=== PATIENT | male | born 1950 | race Caucasian/White ===

== ENCOUNTER 2017-06-19 13:41 | Inpatient (IN) | payer OTHER ==
[2017-06-19 14:24] LABS: BASOPHILS # (AUTO) 0.1 X10^3/uL (0.0-0.1); BASOPHILS % (AUTO) 0.9 % (0.2-1.0); EOSINOPHILS % (AUTO) 0.6 % (0.9-2.9); HEMATOCRIT 31.9 % (42.0-54.0); HEMOGLOBIN 11.3 g/dL (13.5-18.0); LYMPHOCYTES # (AUTO) 0.8 X10^3/uL (1.3-2.9); LYMPHOCYTES % (AUTO) 11.9 % (21.0-51.0); MEAN CORPUSCULAR HEMOGLOBIN 29.3 pg (27.0-34.0); MEAN CORPUSCULAR HGB CONC 35.3 g/dL (33.0-35.0); MEAN CORPUSCULAR VOLUME 83.1 fL (80.0-100.0); MEAN PLATELET VOLUME 7.7 fL (7.4-11.0); MONOCYTES # (AUTO) 0.4 x10^3/uL (0.3-0.8); MONOCYTES % (AUTO) 5.1 % (0.0-13.0); NEUTROPHILS # (AUTO) 5.6 x10^3/uL (2.2-4.8); NEUTROPHILS % (AUTO) 81.5 % (42.0-75.0); PLATELET COUNT 392 X10^3/uL (150.0-450.0); RED BLOOD COUNT 3.84 X10^6/uL (4.7-6.0); RED CELL DISTRIBUTION WIDTH 14.5 % (11.6-16.5); WHITE BLOOD COUNT 6.9 X10^3/uL (3.6-10.0)
--- NOTE | 2017-06-19 14:32 | RAD ---
Examination: AP chest History: Dizzy and chest pain Findings: Normal heart size, sternal wires, clear lungs and pleural spaces. Impression: No acute chest disease identified. Findings of previous sternotomy. Reported By:
[2017-06-19 14:33] LABS: ALANINE AMINOTRANSFERASE 31 Units/L (12-78); ALBUMIN 3.9 g/dL (3.4-5.0); ALKALINE PHOSPHATASE 154 Units/L (46-116); ASPARTATE AMINO TRANSFERASE 25 Units/L (15-37); BLOOD UREA NITROGEN 42 mg/dL (7-18); CALCIUM 9.4 mg/dL (8.5-10.1); CARBON DIOXIDE 21.9 mmol/L (21-32); CHLORIDE 96 mmol/L (98-107); COR NA(FOR HYPERGLY) 130 mmol/L (136-145); CREATININE 2.28 mg/dL (0.70-1.30); SODIUM 128 mmol/L (136-145); TOTAL PROTEIN 8.3 g/dL (6.4-8.2); eGFR BLACK RACES 37 (>60); eGFR NON BLACK RACES 31 (>60)
[2017-06-19] MEDS ORDERED: NS 1000 ML 1,000 ML ONE (15:16)
[2017-06-19] MEDS ORDERED: D50W ABBOJECT SYR ONE (15:17)
[2017-06-19] MEDS ORDERED: CALCIUM GLUCONATE 10% IV ONE ×2 (15:17→15:19)
[2017-06-19] MEDS ORDERED: SODIUM BICARBONATE 8.4% INJ ADULT ONE (15:18)
[2017-06-19] MEDS ORDERED: HumuLIN R ONE (15:18)
[2017-06-19] MEDS ORDERED: HumuLIN R IV STA (15:19)
[2017-06-19] MEDS ORDERED: D50W ABBOJECT SYR IV ONE (15:19)
[2017-06-19] MEDS ORDERED: LASIX IVP ONE (15:19)
[2017-06-19] MEDS ORDERED: SODIUM BICARBONATE 8.4% INJ ADULT IVP ONE (15:22)
[2017-06-19] MEDS ORDERED: ZOFRAN INJ 4 MG VIAL IVP ONE (15:42)
--- NOTE | 2017-06-19 15:56 | DR.GENAD ---
HPI - PCP Primary Care Physician: MARKO VICE PRESIDENT [employer] - Complaint/Symptoms Chief Complaint Doctors Comments: Patient has been treated for cellulitis of the left foot for the past week. He now complaine of dizziness, weakness and not feeling well. Chief Complaint:: PT C/O FOR THE PAST FEW DAY'S BEING DIZZY, CHEST PAINS CHILLS , AND WEAK.. PT HAS HX OF INFECTION TO HIS LEFT FOOT PAIN ".. - Source History Provided: Patient - Mode of Arrival Mode of Arrival: Wheelchair - Timing Onset of Chief Complaint: 06/16/17 PMH - PMH Past Medical History: Yes Past Medical History: Dialysis, GERD, Hypertension Past Medical History Comment: CVA , [place]. Past Surgical History: Yes Surgical History: Angioplasty/Stents, CABG/Valve Surgery - Family History History of Family Medical Conditions: No - Social History Does patient currently use any type of tobacco product: No Have you used tobacco products in the last 12 months: No Type of Tobacco Use: None Does any household member use tobacco: No Alcohol Use: None Do you use any recreational Drugs:: No Lives With: Family Lives Where: Home - infectious screening In the last 2 months have you had wt loss of >10#?: NO Have you had fever, night sweats or hemotysis?: No Have you traveled outside the country in the last 6 months?: No Isolation: Standard PE - Vital Signs Vitals: Temperature 98.0 F Pulse Rate [Left Brachial] 72 Pulse Rate 76 Respiratory Rate 18 Blood Pressure [Left Arm] 116/67 Blood Pressure 106/57 O2 Sat by Pulse Oximetry 100 Course - Consultation Called: 17:15 (Dr Wagner agreed to admit for further evaluation and treatment) ROR - Labs Reviewed Result Diagrams: 06/19/17 14:13 06/19/17 14:13 Laboratory: WBC 6.9 X10^3/uL (3.6-10.0) 06/19/17 14:13 RBC 3.84 X10^6/uL (4.7-6.0) L 06/19/17 14:13 Hgb 11.3 g/dL (13.5-18.0) L 06/19/17 14:13 Hct 31.9 % (42.0-54.0) L 06/19/17 14:13 MCV 83.1 fL (80.0-100.0) 06/19/17 14:13 MCH 29.3 pg (27.0-34.0) 06/19/17 14:13 MCHC 35.3 g/dL (33.0-35.0) H 06/19/17 14:13 RDW 14.5 % (11.6-16.5) 06/19/17 14:13 Plt Count 392 X10^3/uL (150.0-450.0) 06/19/17 14:13 MPV 7.7 fL (7.4-11.0) 06/19/17 14:13 Neut % 81.5 % (42.0-75.0) H 06/19/17 14:13 Lymph % 11.9 % (21.0-51.0) L 06/19/17 14:13 [place] % 5.1 % (0.0-13.0) 06/19/17 14:13 Eos % 0.6 % (0.9-2.9) L 06/19/17 14:13 Baso % 0.9 % (0.2-1.0) 06/19/17 14:13 Neut # 5.6 x10^3/uL (2.2-4.8) H 06/19/17 14:13 Lymph # 0.8 X10^3/uL (1.3-2.9) L 06/19/17 14:13 [place] # 0.4 x10^3/uL (0.3-0.8) 06/19/17 14:13 Eos # 0.0 x10^3/uL (0.0-0.2) 06/19/17 14:13 Baso # 0.1 X10^3/uL (0.0-0.1) 06/19/17 14:13 Absolute Nucleated RBC 0.0 /100WBC 06/19/17 14:13 INR Target Range - 06/19/17 14:13 INR 1.10 (0.8-1.3) 06/19/17 14:13 PTT 32.5 SECONDS (22.9-36.5) 06/19/17 14:13 PTT Comment - 06/19/17 14:13 Sodium 128 mmol/L (136-145) L 06/19/17 14:13 Corrected Sodium 130 mmol/L (136-145) L 06/19/17 14:13 Potassium 6.4 mmol/L (3.5-5.1) H* 06/19/17 14:13 Chloride 96 mmol/L (98-107) L 06/19/17 14:13 Carbon Dioxide 21.9 mmol/L (21-32) 06/19/17 14:13 BUN 42 mg/dL (7-18) H 06/19/17 14:13 Creatinine 2.28 mg/dL (0.70-1.30) H 06/19/17 14:13 Est GFR (MDRD) Af Amer 37 (>60) L 06/19/17 14:13 Est GFR (MDRD) Non-Af 31 (>60) L 06/19/17 14:13 Glucose 180 mg/dL (65-99) H 06/19/17 14:13 Calcium 9.4 mg/dL (8.5-10.1) 06/19/17 14:13 Corrected Calcium TNP 06/19/17 14:13 Total Bilirubin 0.50 mg/dL (0.2-1.0) 06/19/17 14:13 AST 25 Units/L (15-37) 06/19/17 14:13 ALT 31 Units/L (12-78) 06/19/17 14:13 Alkaline Phosphatase 154 Units/L (46-116) H 06/19/17 14:13 Total Protein 8.3 g/dL (6.4-8.2) H 06/19/17 14:13 Albumin 3.9 g/dL (3.4-5.0) 06/19/17 14:13 Globulin 4.4 g/dL (2.5-4.5) 06/19/17 14:13 Albumin/Globulin Ratio 0.9 Ratio (1.1-2.1) L 06/19/17 14:13 - XRAY XRAY Interpreted by: Radiologist (Chest; no acute chest disease identified. Findings of prevous sternotomy) - Diagnosis Discharge Problem: Prerenal azotemia, Hyperkalemia, Hyponatremia Chest pain Qualifiers: Chest pain type: unspecified Qualified Code(s): R07.9 - Chest pain, unspecified - Discharge Plan Condition: Stable - Follow ups/Referrals Follow ups/Referrals: STEPHIE SOLER [Primary Care Provider] - 3 days - Instructions
[2017-06-19] MEDS ORDERED: REQUIP PO ONE (17:00)
[2017-06-19] MEDS ORDERED: NS 1000 ML 1,000 ML IV ONE (17:09)
[2017-06-19 18:00] LABS: BILIRUBIN,URINE NEGATIVE (NEGATIVE); BLOOD/HEMOGLOBIN,URINE 1+ (NEGATIVE); GLUCOSE, URINE 2+ (NEGATIVE); KETONES,URINE NEGATIVE (NEGATIVE); LEUKOCYTE ESTERASE ,URINE NEGATIVE (NEGATIVE); NITRITES,URINE NEGATIVE (NEGATIVE); PROTEIN,URINE 2+ (NEGATIVE); UROBILINOGEN,URINE NORMAL (NORMAL)
[2017-06-19 18:06] LABS: AMORPHOUS SEDIMENT,UR 1+ /HPF (NEGATIVE); APPEARANCE,URINE CLEAR (CLEAR); BACTERIA,URINE NEGATIVE /HPF (NEGATIVE); COLOR,URINE YELLOW (YELLOW); RBC,URINE 0-2 /HPF (NEGATIVE); SQUAMOUS EPITHELIAL CELL,UR NEGATIVE /HPF (NEGATIVE)
--- NOTE | 2017-06-19 18:48 | CT ---
CT abdomen and pelvis without contrast Indication: Dizzy, chest pain, chills, weakness Technique: Helical CT images of the abdomen and pelvis were obtained without IV contrast. Reformatted images in the coronal and sagittal planes were also generated for review. Comparison: None Findings: Lung bases are clear. The heart is mildly enlarged. Prior median sternotomy and degenerativ e changes are noted throughout the spine. No aggressive osseous lesions are identified. The gallbladder surgically absent. Within the limits of a noncontrast exam, the liver, spleen, pancre as and adrenals are unremarkable. Both kidneys and visualized ureters are normal without radiopaque s tones or hydroureteronephrosis. There is moderate stool throughout the colon and rectum, suggestive f or constipation. The appendix is not identified and may be absent. No bowel inflammation or obstructi on is seen. There is mild calcification of the abdominal aorta without aneurysm. The urinary bladder is normal. T he centrally calcified prostate is normal in size. No free air, free fluid or lymphadenopathy is iden tified. Impression: No acute abnormality to explain patient's symptoms. Moderate stool burden throughout the colon, suggestive for constipation. Additional incidental findin gs, as above. Reported By:
[2017-06-19] MEDS ORDERED: NS 1000 ML 1,000 ML IV SCH (19:00)
[2017-06-19] MEDS: NS 1000 ML 1,000 ML IV SCH (20:03)
[2017-06-19 20:11] LABS: CKMB % 3.4 % (<4); CREATINE KINASE 76 Units/L (39-308); CREATINE KINASE MB 2.6 ng/mL (0-4.0); TROPONIN I < 0.02 ng/mL (0-1.5)
[2017-06-19] MEDS: BACTRIM DS TAB PO SCH (22:03)
[2017-06-19] MEDS: COLACE CAP 100 MG PO SCH (22:03)
[2017-06-19] MEDS: HumuLIN R SUBCUT PRN (22:03)
[2017-06-19] MEDS: MILK OF MAGNESIA PO SCH (22:03)
[2017-06-20 02:20] VITALS: BMI 27.3
[2017-06-20 02:47] LABS: BASOPHILS % (AUTO) 0.5 % (0.2-1.0); EOSINOPHILS % (AUTO) 0.8 % (0.9-2.9); HEMATOCRIT 29.8 % (42.0-54.0); HEMOGLOBIN 10.5 g/dL (13.5-18.0); LYMPHOCYTES # (AUTO) 1.1 X10^3/uL (1.3-2.9); LYMPHOCYTES % (AUTO) 25.4 % (21.0-51.0); MEAN CORPUSCULAR HEMOGLOBIN 29.3 pg (27.0-34.0); MEAN CORPUSCULAR HGB CONC 35.4 g/dL (33.0-35.0); MEAN CORPUSCULAR VOLUME 82.9 fL (80.0-100.0); MEAN PLATELET VOLUME 7.7 fL (7.4-11.0); MONOCYTES # (AUTO) 0.4 x10^3/uL (0.3-0.8); MONOCYTES % (AUTO) 9.2 % (0.0-13.0); NEUTROPHILS # (AUTO) 2.7 x10^3/uL (2.2-4.8); NEUTROPHILS % (AUTO) 64.1 % (42.0-75.0); PLATELET COUNT 331 X10^3/uL (150.0-450.0); RED CELL DISTRIBUTION WIDTH 14.4 % (11.6-16.5); WHITE BLOOD COUNT 4.2 X10^3/uL (3.6-10.0)
[2017-06-20 02:56] LABS: BILIRUBIN,URINE NEGATIVE (NEGATIVE); BLOOD/HEMOGLOBIN,URINE NEGATIVE (NEGATIVE); GLUCOSE, URINE NEGATIVE (NEGATIVE); KETONES,URINE NEGATIVE (NEGATIVE); LEUKOCYTE ESTERASE ,URINE NEGATIVE (NEGATIVE); NITRITES,URINE NEGATIVE (NEGATIVE); PH,URINE 6.5 (5.0 - 8.0); PROTEIN,URINE NEGATIVE (NEGATIVE); UROBILINOGEN,URINE NORMAL (NORMAL)
[2017-06-20 03:04] LABS: CREATINE KINASE 71 Units/L (39-308); CREATINE KINASE MB 2.1 ng/mL (0-4.0); TROPONIN I < 0.02 ng/mL (0-1.5)
[2017-06-20 03:06] LABS: APPEARANCE,URINE CLEAR (CLEAR); BACTERIA,URINE NEGATIVE /HPF (NEGATIVE); COLOR,URINE PALE YELLOW (YELLOW); RBC,URINE NONE SEEN /HPF (NEGATIVE); SQUAMOUS EPITHELIAL CELL,UR RARE /HPF (NEGATIVE)
[2017-06-20 03:27] LABS: ALANINE AMINOTRANSFERASE 29 Units/L (12-78); ALBUMIN 3.4 g/dL (3.4-5.0); ALKALINE PHOSPHATASE 130 Units/L (46-116); ASPARTATE AMINO TRANSFERASE 20 Units/L (15-37); BLOOD UREA NITROGEN 40 mg/dL (7-18); CARBON DIOXIDE 25.1 mmol/L (21-32); CHLORIDE 100 mmol/L (98-107); COR NA(FOR HYPERGLY) 136 mmol/L (136-145); SODIUM 135 mmol/L (136-145); TOTAL PROTEIN 7.2 g/dL (6.4-8.2); eGFR BLACK RACES 43 (>60); eGFR NON BLACK RACES 36 (>60)
[2017-06-20] MEDS: AMARYL TAB 4 MG PO SCH ×2 (06:19→17:51)
--- NOTE | 2017-06-20 07:15 | RAD ---
Examination: Portable AP chest History: Chest pain and weakness. Comparison reference 06/19/2017 Findings: Continued upper normal heart size with essentially clear lungs and pleural spaces. Impression: No significant interval change; no acute abnormality demonstrated. Reported By:
[2017-06-20] MEDS: ASPIRIN 81 MG CHEWTAB PO SCH (08:47)
[2017-06-20] MEDS: BACTRIM DS TAB PO SCH (08:47)
[2017-06-20] MEDS: ZESTRIL TAB 5 MG PO SCH (08:47)
[2017-06-20] MEDS: HYDROCHLOROTHIAZIDE 25 MG TAB PO SCH (08:47)
[2017-06-20] MEDS: SYNTHROID 112 mcg TAB PO SCH (08:48)
[2017-06-20] MEDS: MILK OF MAGNESIA PO SCH ×2 (08:48→20:43)
[2017-06-20] MEDS: COREG TAB 25 MG PO SCH (08:48)
[2017-06-20] MEDS: BENADRYL CAP/TAB 25 MG PO PRN (09:07)
[2017-06-20] MEDS ORDERED: PHARMACY CONSULT - DOSE _____ XX SCH (10:00)
[2017-06-20] MEDS ORDERED: FORTAZ or TAZICEF INJ 1 GM in NS 50 ML IV 50 ML IV SCH (10:00)
[2017-06-20] MEDS: SNACK - Diabetic Appropriate PO SCH ×2 (10:46→20:00)
[2017-06-20] MEDS ORDERED: BACTROBAN OINT TOP SCH (11:00)
[2017-06-20] MEDS: VANCOMYCIN HCL 1 GM VIAL 1 GM in NS 250 ML IV 250 ML IV SCH (11:09)
--- NOTE | 2017-06-20 12:00 | US ---
HISTORY: Acute renal failure Study: Renal ultrasound: Multiplanar ultrasonographic examination of the kidneys and region of the bladder was performed using color and grayscale imaging. Comparison: CT scan from 06/19/2017 Findings: On the images submitted to me the kidneys are of normal size, echogenicity and echotexture. I see no evidence of renal mass or hydronephrosis. Right kidney: 10.4 cm in length by 4.1 by 4.8 cm. Left kidney: 9.7 cm in length by 3.9 by 3.9 cm. The urinary bladder is nonvisualized secondary to nondistention. Of note is a mildly enlarged spleen measuring 14 cm in length. IMPRESSION: 1. Negative renal ultrasound. 2. Mild splenomegaly. Reported By:
[2017-06-20] MEDS ORDERED: REQUIP PO ONE (12:03)
[2017-06-20] MEDS: HumuLIN R SUBCUT PRN ×2 (12:53→20:42)
[2017-06-20] MEDS: BACTROBAN OINT TOP SCH ×2 (14:13→22:30)
[2017-06-20] MEDS: NS 1000 ML 1,000 ML IV SCH ×2 (17:51→21:20)
[2017-06-20] MEDS: FORTAZ OR TAZICEF IV SCH (20:41)
[2017-06-20] MEDS: D5W IV SCH (20:41)
[2017-06-20] MEDS: COLACE CAP 100 MG PO SCH (20:43)
[2017-06-21] MEDS: NS 1000 ML 1,000 ML IV SCH ×3 (03:55→23:35)
[2017-06-21 04:50] LABS: BASOPHILS % (AUTO) 0.8 % (0.2-1.0); EOSINOPHILS # (AUTO) 0.1 x10^3/uL (0.0-0.2); EOSINOPHILS % (AUTO) 2.1 % (0.9-2.9); HEMOGLOBIN 10.4 g/dL (13.5-18.0); LYMPHOCYTES # (AUTO) 1.1 X10^3/uL (1.3-2.9); LYMPHOCYTES % (AUTO) 27.6 % (21.0-51.0); MEAN CORPUSCULAR HEMOGLOBIN 29.2 pg (27.0-34.0); MEAN CORPUSCULAR HGB CONC 34.8 g/dL (33.0-35.0); MEAN CORPUSCULAR VOLUME 83.9 fL (80.0-100.0); MEAN PLATELET VOLUME 7.9 fL (7.4-11.0); MONOCYTES # (AUTO) 0.3 x10^3/uL (0.3-0.8); MONOCYTES % (AUTO) 8.7 % (0.0-13.0); NEUTROPHILS # (AUTO) 2.4 x10^3/uL (2.2-4.8); NEUTROPHILS % (AUTO) 60.8 % (42.0-75.0); PLATELET COUNT 302 X10^3/uL (150.0-450.0); RED BLOOD COUNT 3.57 X10^6/uL (4.7-6.0); RED CELL DISTRIBUTION WIDTH 14.7 % (11.6-16.5); WHITE BLOOD COUNT 3.9 X10^3/uL (3.6-10.0)
[2017-06-21 05:14] LABS: ALANINE AMINOTRANSFERASE 27 Units/L (12-78); ALBUMIN 3.3 g/dL (3.4-5.0); ALKALINE PHOSPHATASE 117 Units/L (46-116); ASPARTATE AMINO TRANSFERASE 26 Units/L (15-37); BLOOD UREA NITROGEN 36 mg/dL (7-18); CALCIUM 8.4 mg/dL (8.5-10.1); CARBON DIOXIDE 21.6 mmol/L (21-32); CHLORIDE 102 mmol/L (98-107); CREATININE 1.89 mg/dL (0.70-1.30); SODIUM 135 mmol/L (136-145); TOTAL PROTEIN 7.1 g/dL (6.4-8.2); eGFR BLACK RACES 46 (>60); eGFR NON BLACK RACES 38 (>60)
[2017-06-21] MEDS: BACTROBAN OINT TOP SCH ×3 (05:35→21:35)
[2017-06-21 07:48] LABS: CREATININE,URINE 52.25 mg/dL (40-278); MICROALBUMIN,URINE 33.5 mg/L
[2017-06-21] MEDS: AMARYL TAB 4 MG PO SCH ×2 (09:17→17:01)
[2017-06-21] MEDS: COREG TAB 25 MG PO SCH (09:17)
[2017-06-21] MEDS: ASPIRIN 81 MG CHEWTAB PO SCH (09:17)
[2017-06-21] MEDS: HYDROCHLOROTHIAZIDE 25 MG TAB PO SCH (09:17)
[2017-06-21] MEDS: D5W IV SCH ×2 (09:17→21:33)
[2017-06-21] MEDS: FORTAZ OR TAZICEF IV SCH ×2 (09:17→21:33)
[2017-06-21] MEDS: SYNTHROID 112 mcg TAB PO SCH (09:18)
[2017-06-21] MEDS: MILK OF MAGNESIA PO SCH ×2 (09:18→21:33)
[2017-06-21] MEDS: VANCOMYCIN HCL 1 GM VIAL 1 GM in NS 250 ML IV 250 ML IV SCH (09:18)
[2017-06-21] MEDS: ZESTRIL TAB 5 MG PO SCH (09:19)
--- NOTE | 2017-06-21 10:28 | DR.H&P ---
H&P - History & Physical for Day of: H&P Date: 06/19/17 - Chief Complaint Chief Complaint: weakness, dizziness, chest pain - Allergies Allergies/Adverse Reactions: Allergies Allergy/AdvReac Type Severity Reaction Status Date / Time No Known Drug Allergies Allergy Verified 06/19/17 19:16 [NKDA] - Past Medical History Past Medical History: Anemia, Coronary Artery Disease, CVA, Depression, Diabetes , Dialysis, Dyslipidemia, Migraines, GERD, Hypertension, AR, Sleep Apnea - Past Surgical History Surgical History: Angioplasty/Stents, CABG/Valve Surgery, Cholecystectomy Additional Surgical History: cataract surgery - Family History Family Medical History: Diabetes Mellitus, Cancer, AR, Coronary Artery Disease, Hypertension - Social History Does patient currently use any type of tobacco product: No Have you used tobacco products in the last 12 months: No Type of Tobacco Use: None Does any household member use tobacco: No Alcohol Use: None - Medications Home Medications: Aspirin [ASPIRIN 81 MG CHEWTAB *] 1 tab PO DAILY 06/19/17 [History Confirmed 06/24] Carvedilol [COREG TAB 25 MG *] 1 tab PO DAILY 06/19/17 [History Confirmed ] Diphenhydramine HCl [BENADRYL 25 MG TAB/CAP *] 1 tab PO DAILY PRN 06/19/17 [ History Confirmed 06/19/17] Glimepiride [Glimepiride 2 mg] 4 mg PO BID 06/19/17 [History Confirmed 06/19/17] Hydrochlorothiazide [HYDROCHLOROTHIAZIDE 25 MG TAB *] 1 tab PO DAILY 06/19/17 [ History Confirmed 06/19/17] Levothyroxine Sodium [SYNTHROID 112 mcg *] 1 tab PO DAILY 06/19/17 [History Confirmed 06/19/17] Lisinopril 1 tab PO DAILY 06/19/17 [History Confirmed 06/19/17] Sulfamethoxazole-Trimethoprim [BACTRIM DS TAB 800/160 MG *] 1 tab PO BID [History Confirmed 06/19/17] - Review of Systems Constitutional: Sweats, Weakness Eyes: No Symptoms Reported. denies: See HPI, Pain, Vision Change, Conjunctivae Inflammation, Eyelid Inflammation, Redness, Other ENT: No Symptoms Reported. denies: See HPI, Ear Pain, Ear Discharge, Nose Pain , Nose Discharge, Nose Congestion, Mouth Pain, Mouth Swelling, Throat Pain, Throat Swelling, Other Respiratory: No Symptoms Reported. denies: See HPI, Cough, Dry, Shortness of Breath, Hemoptysis, SOB with Excertion, Pleuritic Pain, Sputum, Wheezing, Other Cardiovascular: Light Headedness. denies: No Symptoms Reported, Chest Pain, See HPI, Palpitations, Orthopnea, Paroxysmal Noc. Dyspnea, Edema, Other Gastrointestinal: Nausea, Vomiting, Abdominal Pain, Constipation Genitourinary: No Symptoms Reported. denies: See HPI, Dysuria, Frequency, Incontinence, Hematuria, Retention, Other Musculoskeletal: Back Pain, Neck Pain Skin: Wound (left great toe ) Neurological: Weakness - Physical Exam Vital Signs: Temperature 97.7 F Pulse Rate [Left Brachial] 64 Pulse Rate 76 Respiratory Rate 20 Blood Pressure [Left Arm] 135/65 Blood Pressure 106/57 O2 Sat by Pulse Oximetry 95 Oriented: Normal Eyes: Normal. negative: Blurred Vision, Diplopia, Discharge, Pain, Redness, Photophobia, Other Ear: Normal. negative: Right, Left, Swelling, Ecchymosis, Hemotypanum, Abrasion , Laceration Nose: Normal. negative: Injected, Discharge, Blood, Other Throat: Normal. negative: Tonsillar Hypertrophy, Red, Exudate, Dry, Other Respiratory: Clear Throughout Cardiovascular: Normal : Normal Auscultation: Bowel Sounds: Normal. negative: Bruit, Absent, Increased, Decreased, High Pitched, Other Palpation: Normal. negative: Spleen Enlarged, Liver Enlarged, Mass Pulsatile, Other Tenderness: Diffuse, Mild Skin: Wound (left great toe decubitus ) Musculoskeletal: Normal Psychiatric: Normal Mood Description: Calm Affect: Normal Speech Pattern: Clear - Assessment/Plan (1) Chest pain Qualifiers: Chest pain type: unspecified Qualified Code(s): R07.9 - Chest pain, unspecified Status: Acute Plan: serial cardiac enzymes and ekg, telemetry, supplemental oxygen, continue to monitor (2) Hyperkalemia Status: Acute Plan: potassium protocol replacement (3) Hyponatremia Status: Acute Plan: normal saline at 100ml/hr, continue to monitor (4) Prerenal azotemia Status: Acute Plan: renal US in am, normal saline at 100ml/hr, continue to monitor (5) Diabetic ulcer of left great toe Status: Acute Plan: wound care, wound culture, continue abx, continue bactrim ds bid, continue to monitor
[2017-06-21] MEDS: HumuLIN R SUBCUT PRN ×2 (13:08→17:03)
[2017-06-21] MEDS: BENADRYL CAP/TAB 25 MG PO PRN (19:38)
[2017-06-21] MEDS: COLACE CAP 100 MG PO SCH (21:34)
[2017-06-21] MEDS: SNACK - Diabetic Appropriate PO SCH ×2 (21:34→21:38)
[2017-06-22 05:17] LABS: BASOPHILS % (AUTO) 0.9 % (0.2-1.0); EOSINOPHILS # (AUTO) 0.1 x10^3/uL (0.0-0.2); EOSINOPHILS % (AUTO) 2.4 % (0.9-2.9); HEMATOCRIT 28.6 % (42.0-54.0); HEMOGLOBIN 10.1 g/dL (13.5-18.0); LYMPHOCYTES # (AUTO) 1.1 X10^3/uL (1.3-2.9); LYMPHOCYTES % (AUTO) 29.8 % (21.0-51.0); MEAN CORPUSCULAR HEMOGLOBIN 29.4 pg (27.0-34.0); MEAN CORPUSCULAR HGB CONC 35.3 g/dL (33.0-35.0); MEAN CORPUSCULAR VOLUME 83.4 fL (80.0-100.0); MEAN PLATELET VOLUME 7.9 fL (7.4-11.0); MONOCYTES # (AUTO) 0.3 x10^3/uL (0.3-0.8); MONOCYTES % (AUTO) 7.4 % (0.0-13.0); NEUTROPHILS # (AUTO) 2.2 x10^3/uL (2.2-4.8); NEUTROPHILS % (AUTO) 59.5 % (42.0-75.0); PLATELET COUNT 298 X10^3/uL (150.0-450.0); RED BLOOD COUNT 3.43 X10^6/uL (4.7-6.0); RED CELL DISTRIBUTION WIDTH 14.6 % (11.6-16.5); WHITE BLOOD COUNT 3.6 X10^3/uL (3.6-10.0)
[2017-06-22 05:29] LABS: ALANINE AMINOTRANSFERASE 30 Units/L (12-78); ALBUMIN 3.2 g/dL (3.4-5.0); ALKALINE PHOSPHATASE 110 Units/L (46-116); ASPARTATE AMINO TRANSFERASE 24 Units/L (15-37); BLOOD UREA NITROGEN 29 mg/dL (7-18); CALCIUM 8.3 mg/dL (8.5-10.1); CARBON DIOXIDE 22.5 mmol/L (21-32); CHLORIDE 104 mmol/L (98-107); COR CA(FOR HYPOALB) 8.9 mg/dL (8.5-10.1); CREATININE 1.55 mg/dL (0.70-1.30); SODIUM 134 mmol/L (136-145); TOTAL PROTEIN 6.9 g/dL (6.4-8.2); eGFR BLACK RACES 58 (>60); eGFR NON BLACK RACES 48 (>60)
[2017-06-22] MEDS: BACTROBAN OINT TOP SCH (06:13)
[2017-06-22] MEDS: AMARYL TAB 4 MG PO SCH (06:31)
[2017-06-22] MEDS: D5W IV SCH (09:46)
[2017-06-22] MEDS: VANCOMYCIN HCL 1 GM VIAL 1 GM in NS 250 ML IV 250 ML IV SCH (09:46)
[2017-06-22] MEDS: FORTAZ OR TAZICEF IV SCH (09:46)
[2017-06-22] MEDS: ZESTRIL TAB 5 MG PO SCH (09:49)
[2017-06-22] MEDS: ASPIRIN 81 MG CHEWTAB PO SCH (09:49)
[2017-06-22] MEDS: HYDROCHLOROTHIAZIDE 25 MG TAB PO SCH (09:49)
[2017-06-22] MEDS: COREG TAB 25 MG PO SCH (09:49)
[2017-06-22] MEDS: SYNTHROID 112 mcg TAB PO SCH (09:49)
[2017-06-22] MEDS: MILK OF MAGNESIA PO SCH (09:49)
[2017-06-22] MEDS: BENADRYL CAP/TAB 25 MG PO PRN (09:56)
[2017-06-22 14:27] VITALS: BP 127/87
== END 2017-06-22 13:30 | disposition home or self-care (01) | DRG 313 ==
LOC: ER 13:55 → MED/SURG 18:02
PROVIDERS: ADMIT Internal Medicine; ATTEND Internal Medicine
DX: R07.89 Other chest pain (principal); E86.0 Dehydration; E87.5 Hyperkalemia; B95.62 Methicillin resistant Staphylococcus aureus infection as the cause of diseases classified elsewhere; E11.621 Type 2 diabetes mellitus with foot ulcer; L97.528 Non-pressure chronic ulcer of other part of left foot with other specified severity; R94.31 Abnormal electrocardiogram [ECG] [EKG]; R42 Dizziness and giddiness; R53.1 Weakness; R79.89 Other specified abnormal findings of blood chemistry; E87.1 Hypo-osmolality and hyponatremia; I10 Essential (primary) hypertension; K21.9 Gastro-esophageal reflux disease without esophagitis
CPT/HCPCS: 36415; 71010; 74176; 76770; 80053; 81001; 82043; 82550; 82553; 84132; 84484; 85025; 85610; 85730; 87070; 87075; 87077; 87186; 87205; 93005; 93010; 94760; 96365; 96367; 96374; 96375; 99284; A4216; A4222; J0610; J0713; J1815; J1940; J2405; J3370; J3490

== ENCOUNTER 2017-10-01 13:53 | Inpatient (IN) | payer OTHER ==
[2017-10-01] MEDS ORDERED: TUSSIONEX PENNKINETIC SUSP PO PRN (16:43)
[2017-10-01] MEDS ORDERED: LEVAQUIN PREMIX IV 750 MG 750 MG/150 ML BAG IV SCH (16:43)
[2017-10-01] MEDS ORDERED: NS 1000 ML 0 ML ONE (17:23)
[2017-10-01] MEDS ORDERED: SALINE 3% 15 ML NEB TX ONE (17:24)
[2017-10-01] MEDS ORDERED: SALINE 3% 15 ML NEB TX NEB ONE ×2 (17:28→18:30)
[2017-10-01 17:32] LABS: BASOPHILS % (AUTO) 0.5 % (0.2-1.0); EOSINOPHILS # (AUTO) 0.1 x10^3/uL (0.0-0.2); EOSINOPHILS % (AUTO) 0.8 % (0.9-2.9); HEMATOCRIT 33.7 % (42.0-54.0); HEMOGLOBIN 12.1 g/dL (13.5-18.0); LYMPHOCYTES # (AUTO) 0.7 X10^3/uL (1.3-2.9); LYMPHOCYTES % (AUTO) 9.5 % (21.0-51.0); MEAN CORPUSCULAR HEMOGLOBIN 31.2 pg (27.0-34.0); MEAN CORPUSCULAR HGB CONC 36.1 g/dL (33.0-35.0); MEAN CORPUSCULAR VOLUME 86.6 fL (80.0-100.0); MEAN PLATELET VOLUME 8.9 fL (7.4-11.0); MONOCYTES # (AUTO) 0.7 x10^3/uL (0.3-0.8); MONOCYTES % (AUTO) 8.8 % (0.0-13.0); NEUTROPHILS # (AUTO) 6.2 x10^3/uL (2.2-4.8); NEUTROPHILS % (AUTO) 80.4 % (42.0-75.0); PLATELET COUNT 197 X10^3/uL (150.0-450.0); RED BLOOD COUNT 3.89 X10^6/uL (4.7-6.0); RED CELL DISTRIBUTION WIDTH 14.6 % (11.6-16.5); WHITE BLOOD COUNT 7.8 X10^3/uL (3.6-10.0)
[2017-10-01] MEDS ORDERED: NS 1/2 1000 ML IV 1,000 ML IV ONE (17:34)
[2017-10-01] MEDS: NS 1/2 1000 ML IV 1,000 ML IV SCH (17:34)
[2017-10-01] MEDS: TAMIFLU PO SCH ×2 (17:39→20:36)
[2017-10-01] MEDS: ROBITUSSIN DM PO SCH ×2 (17:39→20:36)
[2017-10-01 17:44] LABS: ALANINE AMINOTRANSFERASE 30 Units/L (12-78); ALBUMIN 3.8 g/dL (3.4-5.0); ALKALINE PHOSPHATASE 115 Units/L (46-116); ASPARTATE AMINO TRANSFERASE 20 Units/L (15-37); BLOOD UREA NITROGEN 40 mg/dL (7-18); CALCIUM 8.7 mg/dL (8.5-10.1); CHLORIDE 95 mmol/L (98-107); COR NA(FOR HYPERGLY) 137 mmol/L (136-145); SODIUM 131 mmol/L (136-145); eGFR BLACK RACES 43 (>60); eGFR NON BLACK RACES 36 (>60)
[2017-10-01] MEDS: HumuLIN R SUBCUT PRN ×2 (19:44→22:45)
[2017-10-01 20:15] VITALS: BMI 27.6
[2017-10-01] MEDS ORDERED: NS 100 ML IV + SPIKE MINIBAG* 100 ML IV ONE (20:27)
[2017-10-01] MEDS ORDERED: DUONEB 0.5 MG/3 MG NEB SCH (21:00)
[2017-10-01] MEDS: DUONEB 0.5 MG/3 MG NEB SCH (22:08)
[2017-10-01] MEDS: SNACK - Diabetic Appropriate PO SCH (22:15)
[2017-10-01] MEDS: ZOSYN VIAL 4.5 GM IV SCH (22:16)
[2017-10-01] MEDS: MAALOX or MYLANTA PO PRN (23:13)
[2017-10-02] MEDS: DUONEB 0.5 MG/3 MG NEB SCH ×6 (00:48→21:00)
[2017-10-02] MEDS ORDERED: NS 1/2 1000 ML IV 1,000 ML IV ONE ×2 (04:52→20:48)
[2017-10-02] MEDS ORDERED: NS 100 ML IV + SPIKE MINIBAG* 100 ML IV ONE (05:17)
[2017-10-02] MEDS: ZOSYN VIAL 4.5 GM IV SCH ×2 (05:23→05:24)
[2017-10-02] MEDS: NS 1/2 1000 ML IV 1,000 ML IV SCH ×2 (06:11→21:01)
[2017-10-02] MEDS: HumuLIN R SUBCUT PRN ×3 (06:17→15:55)
[2017-10-02 06:21] LABS: BASOPHILS % (AUTO) 0.5 % (0.2-1.0); EOSINOPHILS % (AUTO) 0.4 % (0.9-2.9); HEMATOCRIT 29.2 % (42.0-54.0); HEMOGLOBIN 10.6 g/dL (13.5-18.0); LYMPHOCYTES % (AUTO) 15.2 % (21.0-51.0); MEAN CORPUSCULAR HEMOGLOBIN 31.4 pg (27.0-34.0); MEAN CORPUSCULAR HGB CONC 36.2 g/dL (33.0-35.0); MEAN CORPUSCULAR VOLUME 86.7 fL (80.0-100.0); MEAN PLATELET VOLUME 8.5 fL (7.4-11.0); MONOCYTES # (AUTO) 0.8 x10^3/uL (0.3-0.8); NEUTROPHILS # (AUTO) 4.6 x10^3/uL (2.2-4.8); NEUTROPHILS % (AUTO) 71.9 % (42.0-75.0); PLATELET COUNT 165 X10^3/uL (150.0-450.0); RED BLOOD COUNT 3.37 X10^6/uL (4.7-6.0); RED CELL DISTRIBUTION WIDTH 13.9 % (11.6-16.5); WHITE BLOOD COUNT 6.5 X10^3/uL (3.6-10.0)
--- NOTE | 2017-10-02 06:28 | RAD ---
HISTORY: Pneumonia, cough, shortness of breath Study: Two-view chest Comparison: 06/19/2017. Findings: There again changes of CABG with median sternotomy sutures and metallic markers indicating coronary a rtery bypass grafts. A left-sided coronary stent is also seen. Trachea is midline. There is mild card iomegaly with aortic uncoiling. Lungs and pleural spaces are clear. No infiltrate, CHF, pleural fluid or pneumothorax is seen. Osseous structures are intact. IMPRESSION: Postsurgical changes are again noted. Mild cardiomegaly. No acute cardiopulmonary disease. Reported By:
[2017-10-02 07:05] LABS: ALBUMIN 3.1 g/dL (3.4-5.0); CARBON DIOXIDE 23.6 mmol/L (21-32); COR CA(FOR HYPOALB) 8.7 mg/dL (8.5-10.1); CREATININE 2.15 mg/dL (0.70-1.30)
--- NOTE | 2017-10-02 07:41 | RAD ---
Exam: Chest, frontal view dated 10/02/2017 at 7:08 a.m. History: 67-year-old male with pneumonia and cough. Comparison: Previous chest radiograph from 10/01/2017. Findings: Borderline cardiomegaly again noted. No significant vascular congestion. Minimal atelectasis is prese nt at the right base. Otherwise lungs are clear. No significant effusion on either side. Impression: Minimal right basilar atelectasis. No other significant interval change. Reported By:
[2017-10-02] MEDS: TAMIFLU PO SCH (08:40)
[2017-10-02] MEDS: ROBITUSSIN DM PO SCH ×4 (08:40→21:00)
[2017-10-02] MEDS: ASPIRIN 81 MG CHEWTAB PO SCH (14:57)
[2017-10-02] MEDS: ZOSYN VIAL 2.25 GM 2.25 GM in NS 100 ML IV + SPIKE MINIBAG* 100 ML IV SCH ×2 (14:58→22:00)
--- NOTE | 2017-10-02 17:13 | DR.UPDATE ---
H&P Update History and Physical Update: PATIENT WAS SEEN IN THE OFFICE ON 10/01/2017. A H&P WAS COMPLETED PRIOR TO ADMISSION. PATIENT HAS BEEN SEEN AND EXAMINED WITH NO CHANGES NOTED TO H&P. Changes noted: NO Yes with the following:
[2017-10-02] MEDS: AMARYL TAB 4 MG PO SCH (21:00)
[2017-10-02] MEDS: SNACK - Diabetic Appropriate PO SCH (21:01)
[2017-10-02] MEDS: MAALOX or MYLANTA PO PRN (22:11)
[2017-10-03] MEDS: DUONEB 0.5 MG/3 MG NEB SCH ×6 (01:12→20:50)
[2017-10-03] MEDS: ZOFRAN INJ 4 MG VIAL IVP PRN ×2 (01:14→20:01)
[2017-10-03] MEDS: ZOSYN VIAL 2.25 GM 2.25 GM in NS 100 ML IV + SPIKE MINIBAG* 100 ML IV SCH ×3 (06:16→22:07)
[2017-10-03] MEDS: HumuLIN R SUBCUT PRN ×3 (06:21→20:00)
[2017-10-03 07:06] LABS: ALBUMIN 3.1 g/dL (3.4-5.0); CALCIUM 8.1 mg/dL (8.5-10.1); CARBON DIOXIDE 23.3 mmol/L (21-32); COR CA(FOR HYPOALB) 8.8 mg/dL (8.5-10.1); CREATININE 1.9 mg/dL (0.70-1.30); TOTAL PROTEIN 7.4 g/dL (6.4-8.2)
[2017-10-03 07:13] LABS: BASOPHILS % (AUTO) 0.7 % (0.2-1.0); EOSINOPHILS % (AUTO) 0.5 % (0.9-2.9); HEMATOCRIT 28.9 % (42.0-54.0); HEMOGLOBIN 10.5 g/dL (13.5-18.0); LYMPHOCYTES # (AUTO) 0.8 X10^3/uL (1.3-2.9); LYMPHOCYTES % (AUTO) 11.9 % (21.0-51.0); MEAN CORPUSCULAR HEMOGLOBIN 31.1 pg (27.0-34.0); MEAN CORPUSCULAR HGB CONC 36.3 g/dL (33.0-35.0); MEAN CORPUSCULAR VOLUME 85.6 fL (80.0-100.0); MONOCYTES # (AUTO) 0.6 x10^3/uL (0.3-0.8); NEUTROPHILS % (AUTO) 77.9 % (42.0-75.0); PLATELET COUNT 177 X10^3/uL (150.0-450.0); RED BLOOD COUNT 3.37 X10^6/uL (4.7-6.0); RED CELL DISTRIBUTION WIDTH 14.2 % (11.6-16.5); WHITE BLOOD COUNT 6.5 X10^3/uL (3.6-10.0)
--- NOTE | 2017-10-03 08:28 | RAD ---
HISTORY: Pneumonia. Cough. Shortness of breath. Study: AP portable chest Comparison: 10/02/2017 Findings: Mild increase in the vascular congestion is noted. The heart size is mildly enlarged. Patient is st atus post median sternotomy. No acute bony abnormalities are identified. IMPRESSION: 1. Mild cardiomegaly with findings of mild pulmonary vascular congestion. Reported By:
[2017-10-03] MEDS: ROBITUSSIN DM PO SCH ×4 (10:33→20:00)
[2017-10-03] MEDS: TAMIFLU PO SCH (10:33)
[2017-10-03] MEDS: AMARYL TAB 4 MG PO SCH ×2 (10:33→19:59)
[2017-10-03] MEDS: ASPIRIN 81 MG CHEWTAB PO SCH (10:34)
[2017-10-03] MEDS: SYNTHROID 112 mcg TAB PO SCH (10:34)
[2017-10-03] MEDS: LEVAQUIN PREMIX IV 750 MG 750 MG/150 ML BAG IV SCH (10:34)
[2017-10-03] MEDS: NS 1/2 1000 ML IV 1,000 ML IV SCH (12:31)
[2017-10-03] MEDS ORDERED: NS 1/2 1000 ML IV 1,000 ML IV ONE (15:00)
[2017-10-03] MEDS: SNACK - Diabetic Appropriate PO SCH (20:00)
--- NOTE | 2017-10-03 20:34 | PCM.PROG ---
Progress Note - Progress Note for Day of Date: 10/02/17 - Subjective Subjective: WAS ADMITTED YESTERDAY FOR COMMUNITY ACQUIRED PNEUMONIA. TODAY, HE IS ALERT AND ORIENTED, LYING IN BED ON MORNING ROUNDS. HE CONTINUES WITH COMPLAINTS OF SHORTNESS OF BREATH. HE REPORTS A NON-PRODUCTIVE COUGH THIS MORNING. HE CONTINUES WITH SCATTERED WHEEZING THROUGHOUT IN BILATERAL LUNG OZUNA. HE IS CURRENTLY UTILIZING OXYGEN VIA NASAL CANNULA AT 2L/MIN. ABNORMAL LABS THIS MORNING INCLUDE RBC 3.37, HGB 10.6, HCT 29.2, SODIUM 132, CHLORIDE 97 , BUN 45, CREATININE 2.15, GLUCOSE 198, CALCIUM 8.0, TOTAL BILI 1.10, ALBUMIN 3.1. SPUTUM AND BLOOD CULTURES ARE PENDING. TODAYS CHEST XRAY REVEALS MINIMAL RIGHT BASILAR ATELECTASIS. TODAY, WE WILL CONTINUE ZOSYN AND LEVAQUIN FOR TREATMENT OF PNEUMONIA. WE WILL ALSO CONTINUE RESPIRATORY TREATMENTS AND SUPPLEMENTAL OXYGEN. OTHERWISE, WE PLAN TO FOLLOW UP WITH AM LABS AND CHEST XRAY AND CONTINUE TO MONTIOR PATIENT. - Past Medical Family Social History Past Med/Fam/Surg Hx: No changes since H&P Allergies: Allergies No Known Drug Allergies [NKDA] Allergy (Verified 06/28/17 09:56) - Review of Systems ROS: No change since H&P - Vital Signs and I&O's Vital Signs: Temperature 98.2 F Pulse Rate [Right Brachial] 88 Pulse Rate 100 Respiratory Rate 20 Blood Pressure [Right Arm] 104/54 Blood Pressure [Left Arm] 131/60 Blood Pressure 130/60 O2 Sat by Pulse Oximetry 91 Intake and Output: Intake & Output 10/01/17 10/02/17 10/03/17 10/04/17 11:59 11:59 11:59 11:59 Intake Total 1225 2255 1680 Balance 1225 2255 1680 - Physical Exam Oriented: Normal Eyes: Normal Ear: Normal Nose: Normal Throat: Normal Respiratory: Right, Left, Generalized, Wheezes Cardiovascular: Normal : Normal Auscultation: Bowel Sounds: Normal Palpation: Normal Tenderness: Normal Skin: Normal Musculoskeletal: Normal Psychiatric: Normal Mood Description: Calm Affect: Normal Speech Pattern: Clear, Appropriate - Laboratory and Diagnostics Result Diagrams: 10/03/17 05:36 10/03/17 05:36 Labs: 10/01/17 17:11 Blood Blood Culture - Preliminary 10/01/17 17:03 Blood Blood Culture - Preliminary 10/01/17 18:12 Sputum - Expectorated Sputum Sputum Culture - Final 10/01/17 18:12 Sputum - Expectorated Sputum - Final Laboratory WBC 6.5 X10^3/uL (3.6-10.0) 10/03/17 05:36 RBC 3.37 X10^6/uL (4.7-6.0) L 10/03/17 05:36 Hgb 10.5 g/dL (13.5-18.0) L 10/03/17 05:36 Hct 28.9 % (42.0-54.0) L 10/03/17 05:36 MCV 85.6 fL (80.0-100.0) 10/03/17 05:36 MCH 31.1 pg (27.0-34.0) 10/03/17 05:36 MCHC 36.3 g/dL (33.0-35.0) H 10/03/17 05:36 RDW 14.2 % (11.6-16.5) 10/03/17 05:36 Plt Count 177 X10^3/uL (150.0-450.0) 10/03/17 05:36 MPV 9.0 fL (7.4-11.0) 10/03/17 05:36 Neut % (Auto) 77.9 % (42.0-75.0) H 10/03/17 05:36 Lymph % (Auto) 11.9 % (21.0-51.0) L 10/03/17 05:36 [place] % (Auto) 9.0 % (0.0-13.0) 10/03/17 05:36 Eos % (Auto) 0.5 % (0.9-2.9) L 10/03/17 05:36 Baso % (Auto) 0.7 % (0.2-1.0) 10/03/17 05:36 Neut # (Auto) 5.0 x10^3/uL (2.2-4.8) H 10/03/17 05:36 Lymph # (Auto) 0.8 X10^3/uL (1.3-2.9) L 10/03/17 05:36 [place] # (Auto) 0.6 x10^3/uL (0.3-0.8) 10/03/17 05:36 Eos # (Auto) 0.0 x10^3/uL (0.0-0.2) 10/03/17 05:36 Baso # (Auto) 0.0 X10^3/uL (0.0-0.1) 10/03/17 05:36 Absolute Nucleated RBC 0.0 /100WBC 10/03/17 05:36 Sodium 131 mmol/L (136-145) L 10/03/17 05:36 Corrected Sodium 134 mmol/L (136-145) L 10/03/17 05:36 Potassium 4.3 mmol/L (3.5-5.1) 10/03/17 05:36 Chloride 96 mmol/L (98-107) L 10/03/17 05:36 Carbon Dioxide 23.3 mmol/L (21-32) 10/03/17 05:36 BUN 40 mg/dL (7-18) H 10/03/17 05:36 Creatinine 1.90 mg/dL (0.70-1.30) H 10/03/17 05:36 Est GFR (MDRD) Af Amer 46 (>60) L 10/03/17 05:36 Est GFR (MDRD) Non-Af 38 (>60) L 10/03/17 05:36 Glucose 241 mg/dL (65-99) H 10/03/17 05:36 POC Glucose (mg/dL) 278 mg/dL (65-99) H 10/03/17 19:45 Calcium 8.1 mg/dL (8.5-10.1) L 10/03/17 05:36 Corrected Calcium 8.8 mg/dL (8.5-10.1) 10/03/17 05:36 Total Bilirubin 0.70 mg/dL (0.2-1.0) 10/03/17 05:36 AST 29 Units/L (15-37) 10/03/17 05:36 ALT 33 Units/L (12-78) 10/03/17 05:36 Alkaline Phosphatase 117 Units/L (46-116) H 10/03/17 05:36 Total Protein 7.4 g/dL (6.4-8.2) 10/03/17 05:36 Albumin 3.1 g/dL (3.4-5.0) L 10/03/17 05:36 Globulin 4.3 g/dL (2.5-4.5) 10/03/17 05:36 Albumin/Globulin Ratio 0.7 Ratio (1.1-2.1) L 10/03/17 05:36 - Plan (1) Community acquired pneumonia Status: Acute Qualifiers: Laterality: right Lung location: lower lobe of lung Qualified Code(s): J18.1 - Lobar pneumonia, unspecified organism Plan: ZOSYN IV, LEVAQUIN IV, SUPPLEMENTAL OXYGEN, RESPIRATORY TREATMENTS, CONTINUE TO MONITOR
[2017-10-04] MEDS: MAALOX or MYLANTA PO PRN ×2 (00:24→10:21)
[2017-10-04] MEDS: DUONEB 0.5 MG/3 MG NEB SCH ×5 (01:16→20:48)
[2017-10-04] MEDS ORDERED: NS 1/2 1000 ML IV 1,000 ML IV ONE ×2 (02:30→14:34)
[2017-10-04] MEDS: NS 1/2 1000 ML IV 1,000 ML IV SCH ×2 (02:38→14:45)
[2017-10-04] MEDS ORDERED: ZOSYN VIAL 2.25 GM IV ONE (04:36)
[2017-10-04] MEDS: ZOFRAN INJ 4 MG VIAL IVP PRN (04:39)
[2017-10-04] MEDS: ZOSYN VIAL 2.25 GM 2.25 GM in NS 100 ML IV + SPIKE MINIBAG* 100 ML IV SCH ×3 (05:10→21:31)
[2017-10-04 06:18] LABS: BASOPHILS % (AUTO) 0.4 % (0.2-1.0); EOSINOPHILS % (AUTO) 0.2 % (0.9-2.9); HEMATOCRIT 28.5 % (42.0-54.0); HEMOGLOBIN 10.3 g/dL (13.5-18.0); LYMPHOCYTES # (AUTO) 0.6 X10^3/uL (1.3-2.9); LYMPHOCYTES % (AUTO) 8.3 % (21.0-51.0); MEAN CORPUSCULAR HEMOGLOBIN 31.5 pg (27.0-34.0); MEAN CORPUSCULAR HGB CONC 36.3 g/dL (33.0-35.0); MEAN PLATELET VOLUME 8.5 fL (7.4-11.0); MONOCYTES # (AUTO) 0.6 x10^3/uL (0.3-0.8); MONOCYTES % (AUTO) 8.7 % (0.0-13.0); NEUTROPHILS # (AUTO) 5.8 x10^3/uL (2.2-4.8); NEUTROPHILS % (AUTO) 82.4 % (42.0-75.0); PLATELET COUNT 190 X10^3/uL (150.0-450.0); RED BLOOD COUNT 3.28 X10^6/uL (4.7-6.0); RED CELL DISTRIBUTION WIDTH 14.3 % (11.6-16.5); WHITE BLOOD COUNT 7.1 X10^3/uL (3.6-10.0)
[2017-10-04] MEDS: HumuLIN R SUBCUT PRN ×4 (06:22→23:52)
[2017-10-04 06:37] LABS: ALBUMIN 2.9 g/dL (3.4-5.0); CARBON DIOXIDE 23.3 mmol/L (21-32); COR CA(FOR HYPOALB) 8.9 mg/dL (8.5-10.1); CREATININE 1.69 mg/dL (0.70-1.30); TOTAL PROTEIN 7.1 g/dL (6.4-8.2)
--- NOTE | 2017-10-04 07:00 | RAD ---
Examination: AP chest History: Pneumonia, SOB Comparison 10/03/2017 Findings: Continued cardiac enlargement. Interval improvement in vascular congestion and infiltrates/ edema. Central pulmonary vascular distention remains. No evidence for complicating pneumothorax or de veloping pleural effusion. Impression: Interval improvement. Reported By:
[2017-10-04] MEDS: ROBITUSSIN DM PO SCH ×4 (10:18→21:33)
[2017-10-04] MEDS: AMARYL TAB 4 MG PO SCH ×2 (10:19→21:32)
[2017-10-04] MEDS: SYNTHROID 112 mcg TAB PO SCH (10:19)
[2017-10-04] MEDS: ASPIRIN 81 MG CHEWTAB PO SCH (10:19)
[2017-10-04] MEDS: TAMIFLU PO SCH (10:19)
--- NOTE | 2017-10-04 20:42 | PCM.PROG ---
Progress Note - Progress Note for Day of Date: 10/03/17 - Subjective Subjective: IS BEING TREATED FOR COMMUNITY ACQUIRED PNEUMONIA. TODAY , HE IS ALERT AND ORIENTED, LYING IN BED ON MORNING ROUNDS. HE CONTINUES WITH COMPLAINTS OF SHORTNESS OF BREATH AND A NON-PRODUCTIVE COUGH THIS MORNING. HE CONTINUES WITH SCATTERED WHEEZING THROUGHOUT IN BILATERAL LUNG OZUNA. HE IS CURRENTLY UTILIZING OXYGEN VIA NASAL CANNULA AT 2L/MIN. HIS VITALS THIS MORNING ARE 98.7-100-18-94%-123/62. ABNORMAL LABS THIS MORNING INCLUDE THE FOLLOWING: RBC 3.37, HGB 10.5, HCT 28.9, SODIUM 131, CHLORIDE 96, BUN 40, CREATININE 1.90, GLUCOSE 241, CALCIUM 8.1, ALK PHOS 117, ALBUMIN 3.1. SPUTUM CULTURES AND BLOOD CULTURES REPORT NO GROWTH. TODAYS CHEST XRAY REVEALS MILD CARDIOMEGALY WITH FINDINGS OF MILD PULMONARY VASCULAR CONGESTION. WE WILL CONTINUE WITH CURRENT ANTIBIOTICS, RESPIRATORY TREATMENTS, AND SUPPLEMENTAL OXYGEN. OTHERWISE, WE PLAN TO FOLLOW UP WITH AM LABS AND CHEST XRAY AND CONTINUE TO MONTIOR PATIENT. - Past Medical Family Social History Past Med/Fam/Surg Hx: No changes since H&P Allergies: Allergies No Known Drug Allergies [NKDA] Allergy (Verified 06/28/17 09:56) - Review of Systems ROS: No change since H&P - Vital Signs and I&O's Vital Signs: Temperature 98.5 F Pulse Rate [Left Brachial] 98 Pulse Rate [Right Brachial] 100 Pulse Rate 101 Respiratory Rate 18 Blood Pressure [Right Arm] 131/65 Blood Pressure [Left Arm] 125/76 Blood Pressure 130/60 O2 Sat by Pulse Oximetry 90 Intake and Output: Intake & Output 10/02/17 10/03/17 10/04/17 10/05/17 11:59 11:59 11:59 11:59 Intake Total 1225 2778 4257 2926 Balance 1225 2255 2799 2925 - Physical Exam Oriented: Normal Eyes: Normal Ear: Normal Nose: Normal Throat: Normal Respiratory: Right, Left, Generalized, Wheezes Cardiovascular: Normal : Normal Auscultation: Bowel Sounds: Normal Palpation: Normal Tenderness: Normal Skin: Normal Musculoskeletal: Normal Psychiatric: Normal Mood Description: Calm Affect: Normal Speech Pattern: Clear, Appropriate - Laboratory and Diagnostics Result Diagrams: 10/04/17 05:37 10/04/17 12:00 Labs: 10/01/17 17:11 Blood Blood Culture - Preliminary 10/01/17 17:03 Blood Blood Culture - Preliminary 10/01/17 18:12 Sputum - Expectorated Sputum Sputum Culture - Final 10/01/17 18:12 Sputum - Expectorated Sputum - Final Laboratory WBC 7.1 X10^3/uL (3.6-10.0) 10/04/17 05:37 RBC 3.28 X10^6/uL (4.7-6.0) L 10/04/17 05:37 Hgb 10.3 g/dL (13.5-18.0) L 10/04/17 05:37 Hct 28.5 % (42.0-54.0) L 10/04/17 05:37 MCV 87.0 fL (80.0-100.0) 10/04/17 05:37 MCH 31.5 pg (27.0-34.0) 10/04/17 05:37 MCHC 36.3 g/dL (33.0-35.0) H 10/04/17 05:37 RDW 14.3 % (11.6-16.5) 10/04/17 05:37 Plt Count 190 X10^3/uL (150.0-450.0) 10/04/17 05:37 MPV 8.5 fL (7.4-11.0) 10/04/17 05:37 Neut % (Auto) 82.4 % (42.0-75.0) H 10/04/17 05:37 Lymph % (Auto) 8.3 % (21.0-51.0) L 10/04/17 05:37 [place] % (Auto) 8.7 % (0.0-13.0) 10/04/17 05:37 Eos % (Auto) 0.2 % (0.9-2.9) L 10/04/17 05:37 Baso % (Auto) 0.4 % (0.2-1.0) 10/04/17 05:37 Neut # (Auto) 5.8 x10^3/uL (2.2-4.8) H 10/04/17 05:37 Lymph # (Auto) 0.6 X10^3/uL (1.3-2.9) L 10/04/17 05:37 [place] # (Auto) 0.6 x10^3/uL (0.3-0.8) 10/04/17 05:37 Eos # (Auto) 0.0 x10^3/uL (0.0-0.2) 10/04/17 05:37 Baso # (Auto) 0.0 X10^3/uL (0.0-0.1) 10/04/17 05:37 Absolute Nucleated RBC 0.0 /100WBC 10/04/17 05:37 Sodium 129 mmol/L (136-145) L 10/04/17 05:37 Corrected Sodium 133 mmol/L (136-145) L 10/04/17 05:37 Potassium 4.7 mmol/L (3.5-5.1) 10/04/17 05:37 Chloride 94 mmol/L (98-107) L 10/04/17 05:37 Carbon Dioxide 23.3 mmol/L (21-32) 10/04/17 05:37 BUN 32 mg/dL (7-18) H 10/04/17 05:37 Creatinine 1.69 mg/dL (0.70-1.30) H 10/04/17 05:37 Est GFR (MDRD) Af Amer 52 (>60) L 10/04/17 05:37 Est GFR (MDRD) Non-Af 43 (>60) L 10/04/17 05:37 Glucose 360 mg/dL (65-99) H 10/04/17 12:00 POC Glucose (mg/dL) 246 mg/dL (65-99) H 10/04/17 19:56 Calcium 8.0 mg/dL (8.5-10.1) L 10/04/17 05:37 Corrected Calcium 8.9 mg/dL (8.5-10.1) 10/04/17 05:37 Total Bilirubin 0.80 mg/dL (0.2-1.0) 10/04/17 05:37 AST 25 Units/L (15-37) 10/04/17 05:37 ALT 27 Units/L (12-78) 10/04/17 05:37 Alkaline Phosphatase 114 Units/L (46-116) 10/04/17 05:37 Total Protein 7.1 g/dL (6.4-8.2) 10/04/17 05:37 Albumin 2.9 g/dL (3.4-5.0) L 10/04/17 05:37 Globulin 4.2 g/dL (2.5-4.5) 10/04/17 05:37 Albumin/Globulin Ratio 0.7 Ratio (1.1-2.1) L 10/04/17 05:37 - Plan (1) Community acquired pneumonia Status: Acute Qualifiers: Laterality: right Lung location: lower lobe of lung Qualified Code(s): J18.1 - Lobar pneumonia, unspecified organism Plan: ZOSYN IV, LEVAQUIN IV, SUPPLEMENTAL OXYGEN, RESPIRATORY TREATMENTS, CONTINUE TO MONITOR (2) Hypothyroidism Status: Acute Qualifiers: Hypothyroidism type: acquired Qualified Code(s): E03.9 - Hypothyroidism, unspecified Plan: CONTINUE SYNTHROID, CONTINUE TO MONITOR
[2017-10-04] MEDS ORDERED: COLACE CAP 100 MG PO PRN (21:36)
[2017-10-04] MEDS: SNACK - Diabetic Appropriate PO SCH (21:36)
[2017-10-04] MEDS ORDERED: MILK OF MAGNESIA PO PRN (21:36)
[2017-10-05] MEDS ORDERED: MILK OF MAGNESIA PO PRN (00:39)
[2017-10-05] MEDS: DUONEB 0.5 MG/3 MG NEB SCH ×3 (01:17→09:02)
[2017-10-05] MEDS: NS 1/2 1000 ML IV 1,000 ML IV SCH (05:03)
[2017-10-05] MEDS: ZOSYN VIAL 2.25 GM 2.25 GM in NS 100 ML IV + SPIKE MINIBAG* 100 ML IV SCH (05:04)
[2017-10-05] MEDS ORDERED: NS 1/2 1000 ML IV 1,000 ML IV ONE (05:44)
[2017-10-05 06:10] LABS: BASOPHILS % (AUTO) 0.4 % (0.2-1.0); EOSINOPHILS # (AUTO) 0.1 x10^3/uL (0.0-0.2); EOSINOPHILS % (AUTO) 0.9 % (0.9-2.9); HEMATOCRIT 27.8 % (42.0-54.0); LYMPHOCYTES # (AUTO) 0.6 X10^3/uL (1.3-2.9); LYMPHOCYTES % (AUTO) 11.4 % (21.0-51.0); MEAN CORPUSCULAR HEMOGLOBIN 30.9 pg (27.0-34.0); MEAN CORPUSCULAR HGB CONC 35.9 g/dL (33.0-35.0); MEAN PLATELET VOLUME 8.7 fL (7.4-11.0); MONOCYTES # (AUTO) 0.6 x10^3/uL (0.3-0.8); NEUTROPHILS # (AUTO) 4.3 x10^3/uL (2.2-4.8); NEUTROPHILS % (AUTO) 77.3 % (42.0-75.0); PLATELET COUNT 185 X10^3/uL (150.0-450.0); RED BLOOD COUNT 3.23 X10^6/uL (4.7-6.0); RED CELL DISTRIBUTION WIDTH 13.8 % (11.6-16.5); WHITE BLOOD COUNT 5.5 X10^3/uL (3.6-10.0)
[2017-10-05 06:22] LABS: ALBUMIN 2.8 g/dL (3.4-5.0); CREATININE 1.64 mg/dL (0.70-1.30); TOTAL PROTEIN 6.9 g/dL (6.4-8.2)
--- NOTE | 2017-10-05 07:33 | RAD ---
HISTORY: Cough, pneumonia Study: Chest AP portable Comparison: 10/04/2017 Findings: The patient is status post median sternotomy. The heart is enlarged. No definite congestive heart meredith lure is identified. No acute alveolar infiltrates or pleural effusions are identified. The bony thora x is unremarkable. IMPRESSION: Moderate cardiomegaly without definite congestive heart failure No definite acute infiltrates identified Reported By:
[2017-10-05 08:32] VITALS: BP 132/61
[2017-10-05] MEDS: LEVAQUIN PREMIX IV 750 MG 750 MG/150 ML BAG IV SCH (10:29)
[2017-10-05] MEDS: ASPIRIN 81 MG CHEWTAB PO SCH (10:30)
[2017-10-05] MEDS: AMARYL TAB 4 MG PO SCH (10:31)
[2017-10-05] MEDS: ROBITUSSIN DM PO SCH (10:31)
[2017-10-05] MEDS: TAMIFLU PO SCH (10:31)
[2017-10-05] MEDS: SYNTHROID 112 mcg TAB PO SCH (10:31)
== END 2017-10-05 12:12 | disposition home or self-care (01) | DRG 195 ==
LOC: MED/SURG 13:53 → UNDOADMOB 13:53 → MED/SURG 15:51 → OBSVTOIN 10-03 08:30
PROVIDERS: ADMIT Internal Medicine; ATTEND Internal Medicine
DX: J18.1 Lobar pneumonia, unspecified organism (principal); I10 Essential (primary) hypertension; R06.02 Shortness of breath; E03.8 Other specified hypothyroidism; E11.65 Type 2 diabetes mellitus with hyperglycemia
CPT/HCPCS: 36415; 71045; 71046; 80053; 82947; 85025; 87040; 87070; 87205; 94640; 94760; A4222; G9035; G0378; J1815; J1956; J2405; J2543; J7620

== ENCOUNTER 2017-10-06 16:25 | Emergency (ER) | payer OTHER ==
[2017-10-06 16:29] VITALS: BMI 27.3
--- NOTE | 2017-10-06 16:38 | DR.GENAD ---
HPI - PCP Primary Care Physician: eliceo - Complaint/Symptoms Chief Complaint Doctors Comments: Patient presents with complaint vomiting since being discharged. He was admitted and treated for pneumonia. S/P five days of treatment he was discharged on yesterday. He returned today with complaint of vomiting w/o diarrhea or fever. Chief Complaint:: pt was discharged from the hospital yesterday for bhronchitis. stated his vomiting stated last night and not being able to empty his bladder - Source History Provided: Patient - Mode of Arrival Mode of Arrival: Ambulatory - Timing Onset of Chief Complaint: 10/05/17 PMH - PMH Past Medical History: Yes Past Medical History: Anemia, Coronary Artery Disease, CVA, Depression, Diabetes , Dialysis, Dyslipidemia, Migraines, GERD, Hypertension, [place], Sleep Apnea Past Surgical History: Yes Surgical History: Angioplasty/Stents, CABG/Valve Surgery, Cholecystectomy - Family History History of Family Medical Conditions: Yes Family Medical History: Diabetes Mellitus, Cancer, [place], Coronary Artery Disease, Hypertension - Social History Does patient currently use any type of tobacco product: No Have you used tobacco products in the last 12 months: No Type of Tobacco Use: None Does any household member use tobacco: No Alcohol Use: None Do you use any recreational Drugs:: No Lives With: Family Lives Where: Home - infectious screening In the last 2 months have you had wt loss of >10#?: NO Have you had fever, night sweats or hemotysis?: No Have you traveled outside the country in the last 6 months?: No Isolation: Standard ROS - Review of Systems Constitutional: No Symptoms Reported Eyes: No Symptoms Reported ENTM: No Symptoms Reported Respiratoy: No Symptoms Reported Cardiovascular: No Symptoms Reported Gastrointestinal/Abdominal: No Symptoms Reported Genitourinary: No Symptoms Reported Neurological: No Symptoms Reported Musculoskeletal: No Symptoms Reported Integumentary: No Symptoms Reported Hematologic/Lymphatic: No Symptoms Reported Endocrine: No Symptoms Reported Psychiatric: No Symptoms Reported All Other Systems: Reviewed and Negative PE - Vital Signs Vitals: Temperature 97.7 F Pulse Rate 78 Respiratory Rate 18 Blood Pressure [Right Arm] 132/61 Blood Pressure [Left Arm] 125/76 Blood Pressure 137/66 O2 Sat by Pulse Oximetry 96 - General Limitations: No Limitations General Appearance: Alert, In No Apparent Distress - Head Head Exam: Normal Inspection, Atraumatic - Eyes Eye exam: Normal Appearance, PERRL, EOMI - ENT ENT Exam: Normal Exam, Normal Oropharynx External Ear Exam: Normal External Inspection TM/Canal Exam: Bilateral Normal Nose Exam: Normal Nose Exam Mouth Exam: Normal Inspection Throat Exam: Normal Inspection - Neck Neck Exam: Normal Inspection, Full ROM - Chest Chest Inspection: Normal Inspection, Symmetric Chest Wall Rise - Respiratory Respiratory Exam: Normal Lung Sounds Bilat Respiratory Exam: Bilateral Clear to Auscultation - Cardiovascular Cardiovascular Exam: Regular Rate, Normal Rhythm - Abdominal Exam Abdominal Exam: Normal Inspection, Normal Bowel Sounds Abdominal Tenderness: negative: RUQ, RLQ, LUQ, LLQ, Epigastrium, Suprapubic, Diffuse, Mild, Moderate, Severe, Other - Extremities Extremities Exam: Normal Inspection, Full ROM - Back Back Exam: Normal Inspection, Full ROM - Neurologic Neurological Exam: Alert, Oriented X3, CN II-XII Intact - Psychiatric Psychiatric Exam: Normal Affect, Normal Mood - Skin Skin Exam: Warm, Dry, Intact Course - Reevaluation 1st: Improved - Education/Counseling Educated On: Treatment, Diagnosis, Needs for Follow Up ROR - Labs Reviewed Result Diagrams: 10/06/17 17:22 10/06/17 17:22 Laboratory: WBC 4.1 X10^3/uL (3.6-10.0) 10/06/17 17:22 RBC 3.13 X10^6/uL (4.7-6.0) L 10/06/17 17:22 Hgb 9.7 g/dL (13.5-18.0) L 10/06/17 17:22 Hct 26.9 % (42.0-54.0) L 10/06/17 17:22 MCV 85.9 fL (80.0-100.0) 10/06/17 17:22 MCH 31.1 pg (27.0-34.0) 10/06/17 17:22 MCHC 36.2 g/dL (33.0-35.0) H 10/06/17 17:22 RDW 14.1 % (11.6-16.5) 10/06/17 17:22 Plt Count 185 X10^3/uL (150.0-450.0) 10/06/17 17:22 MPV 8.3 fL (7.4-11.0) 10/06/17 17:22 Neut % (Auto) 78.5 % (42.0-75.0) H 10/06/17 17:22 Lymph % (Auto) 9.8 % (21.0-51.0) L 10/06/17 17:22 [place] % (Auto) 9.3 % (0.0-13.0) 10/06/17 17:22 Eos % (Auto) 1.9 % (0.9-2.9) 10/06/17 17:22 Baso % (Auto) 0.5 % (0.2-1.0) 10/06/17 17:22 Neut # (Auto) 3.2 x10^3/uL (2.2-4.8) 10/06/17 17:22 Lymph # (Auto) 0.4 X10^3/uL (1.3-2.9) L 10/06/17 17:22 [place] # (Auto) 0.4 x10^3/uL (0.3-0.8) 10/06/17 17:22 Eos # (Auto) 0.1 x10^3/uL (0.0-0.2) 10/06/17 17:22 Baso # (Auto) 0.0 X10^3/uL (0.0-0.1) 10/06/17 17: Absolute Nucleated RBC 0.0 /100WBC 10/06/17 17:22 Sodium 128 mmol/L (136-145) L 10/06/17 17:22 Corrected Sodium 132 mmol/L (136-145) L 10/06/17 17:22 Potassium 4.5 mmol/L (3.5-5.1) 10/06/17 17:22 Chloride 93 mmol/L (98-107) L 10/06/17 17:22 Carbon Dioxide 24.9 mmol/L (21-32) 10/06/17 17:22 BUN 32 mg/dL (7-18) H 10/06/17 17:22 Creatinine 1.68 mg/dL (0.70-1.30) H 10/06/17 17:22 Est GFR (MDRD) Af Amer 53 (>60) L 10/06/17 17:22 Est GFR (MDRD) Non-Af 44 (>60) L 10/06/17 17:22 Glucose 258 mg/dL (65-99) H 10/06/17 17:22 Calcium 8.5 mg/dL (8.5-10.1) 10/06/17 17:22 Corrected Calcium 9.5 mg/dL (8.5-10.1) 10/06/17 17:22 Total Bilirubin 0.40 mg/dL (0.2-1.0) 10/06/17 17:22 AST 30 Units/L (15-37) 10/06/17 17:22 ALT 31 Units/L (12-78) 10/06/17 17:22 Alkaline Phosphatase 106 Units/L (46-116) 10/06/17 17:22 C-Reactive Protein 70.20 mg/L (0-3.0) H 10/06/17 17:22 Total Protein 6.9 g/dL (6.4-8.2) 10/06/17 17:22 Albumin 2.8 g/dL (3.4-5.0) L 10/06/17 17:22 Globulin 4.1 g/dL (2.5-4.5) 10/06/17 17:22 Albumin/Globulin Ratio 0.7 Ratio (1.1-2.1) L 10/06/17 17:22 - Diagnosis Discharge Problem: Mild dehydration - Discharge Plan Condition: Stable - Follow ups/Referrals Follow ups/Referrals: Martín Wagner [Primary Care Provider] - 3 days - Instructions
[2017-10-06] MEDS ORDERED: ZOFRAN INJ 4 MG VIAL IVP ONE (17:08)
[2017-10-06] MEDS ORDERED: ZOFRAN INJ 4 MG VIAL ONE (17:08)
[2017-10-06] MEDS ORDERED: NS 1000 ML 1,000 ML ONE (17:08)
[2017-10-06 17:35] LABS: BASOPHILS % (AUTO) 0.5 % (0.2-1.0); EOSINOPHILS # (AUTO) 0.1 x10^3/uL (0.0-0.2); EOSINOPHILS % (AUTO) 1.9 % (0.9-2.9); HEMATOCRIT 26.9 % (42.0-54.0); HEMOGLOBIN 9.7 g/dL (13.5-18.0); LYMPHOCYTES # (AUTO) 0.4 X10^3/uL (1.3-2.9); LYMPHOCYTES % (AUTO) 9.8 % (21.0-51.0); MEAN CORPUSCULAR HEMOGLOBIN 31.1 pg (27.0-34.0); MEAN CORPUSCULAR HGB CONC 36.2 g/dL (33.0-35.0); MEAN CORPUSCULAR VOLUME 85.9 fL (80.0-100.0); MEAN PLATELET VOLUME 8.3 fL (7.4-11.0); MONOCYTES # (AUTO) 0.4 x10^3/uL (0.3-0.8); MONOCYTES % (AUTO) 9.3 % (0.0-13.0); NEUTROPHILS # (AUTO) 3.2 x10^3/uL (2.2-4.8); NEUTROPHILS % (AUTO) 78.5 % (42.0-75.0); PLATELET COUNT 185 X10^3/uL (150.0-450.0); RED BLOOD COUNT 3.13 X10^6/uL (4.7-6.0); RED CELL DISTRIBUTION WIDTH 14.1 % (11.6-16.5); WHITE BLOOD COUNT 4.1 X10^3/uL (3.6-10.0)
[2017-10-06 17:46] LABS: ALBUMIN 2.8 g/dL (3.4-5.0); C-REACTIVE PROTEIN 70.2 mg/L (0-3.0); CALCIUM 8.5 mg/dL (8.5-10.1); CARBON DIOXIDE 24.9 mmol/L (21-32); COR CA(FOR HYPOALB) 9.5 mg/dL (8.5-10.1); CREATININE 1.68 mg/dL (0.70-1.30); TOTAL PROTEIN 6.9 g/dL (6.4-8.2)
[2017-10-06] MEDS ORDERED: NS 1000 ML 1,000 ML IV SCH (18:00)
[2017-10-06] MEDS ORDERED: NS 1000 ML 1,000 ML IV ONE (18:08)
[2017-10-06] MEDS ORDERED: PROTONIX INJ 40 MG VIAL IVP ONE (18:09)
[2017-10-06] MEDS ORDERED: PROTONIX INJ 40 MG VIAL ONE (18:20)
[2017-10-06 19:12] VITALS: BP 133/65
== END 2017-10-06 19:17 | disposition home or self-care (01) ==
LOC: ER 16:33
DX: E86.0 Dehydration (principal); R79.82 Elevated C-reactive protein (CRP)
CPT/HCPCS: 36415; 80053; 85025; 86140; 96365; 96374; 99283; A4222; C9113; J2405

== ENCOUNTER 2017-10-12 16:55 | Emergency (ER) | payer OTHER ==
[2017-10-12 17:02] VITALS: BP 117/63; BMI 27.3
--- NOTE | 2017-10-12 18:16 | DR.GENAD ---
HPI - Complaint/Symptoms Chief Complaint Doctors Comments: History as stated. Patient with a history of constipation has required deimpaction in the past. Chief Complaint:: " I have not had a BM in five days" Self Treatment fo Chief Complaint: milk mag at home - Source History Provided: Patient - Mode of Arrival Mode of Arrival: Ambulatory - Timing Onset of Chief Complaint: 10/07/17 PMH - PMH Past Medical History: Yes Past Medical History: Anemia, Coronary Artery Disease, CVA, Depression, Diabetes , Dialysis, Dyslipidemia, Migraines, GERD, Hypertension, [place], Sleep Apnea Past Surgical History: Yes Surgical History: Angioplasty/Stents, CABG/Valve Surgery, Cholecystectomy - Family History History of Family Medical Conditions: Yes Family Medical History: Diabetes Mellitus, Cancer, [place], Coronary Artery Disease, Hypertension - Social History Does patient currently use any type of tobacco product: No Have you used tobacco products in the last 12 months: No Type of Tobacco Use: None Does any household member use tobacco: No Alcohol Use: None Do you use any recreational Drugs:: No Lives With: Family Lives Where: Home - infectious screening In the last 2 months have you had wt loss of >10#?: NO Have you had fever, night sweats or hemotysis?: No Have you traveled outside the country in the last 6 months?: No Isolation: Standard ROS - Review of Systems Eyes: No Symptoms Reported ENTM: No Symptoms Reported Respiratoy: No Symptoms Reported Cardiovascular: No Symptoms Reported Gastrointestinal/Abdominal: No Symptoms Reported Genitourinary: No Symptoms Reported Neurological: No Symptoms Reported Musculoskeletal: No Symptoms Reported Integumentary: No Symptoms Reported Hematologic/Lymphatic: No Symptoms Reported Endocrine: No Symptoms Reported Psychiatric: No Symptoms Reported All Other Systems: Reviewed and Negative PE - Vital Signs Vitals: Temperature 98 F Pulse Rate 65 Respiratory Rate 18 Blood Pressure [Right Arm] 133/65 Blood Pressure [Left Arm] 125/76 Blood Pressure 117/63 O2 Sat by Pulse Oximetry 100 - General General Appearance: Alert, In No Apparent Distress - Head Head Exam: Normal Inspection, Atraumatic - Eyes Eye exam: Normal Appearance, PERRL, EOMI - ENT ENT Exam: Normal Exam External Ear Exam: Normal External Inspection TM/Canal Exam: Bilateral Normal Nose Exam: Normal Nose Exam, Sinus Tenderness Mouth Exam: Normal Inspection Throat Exam: Normal Inspection - Neck Neck Exam: Normal Inspection - Chest Chest Inspection: Normal Inspection, Symmetric Chest Wall Rise - Cardiovascular Cardiovascular Exam: Regular Rate, Normal Rhythm - Abdominal Exam Abdominal Exam: Normal Inspection, Normal Bowel Sounds - Extremities Extremities Exam: Normal Inspection, Full ROM - Neurologic Neurological Exam: Alert, Oriented X3, CN II-XII Intact - Psychiatric Psychiatric Exam: Normal Affect - Skin Skin Exam: Warm, Dry, Intact ROR - XRAY XRAY Interpreted by: Self (Desending colon with fecal material) - Diagnosis Discharge Problem: Constipation by delayed colonic transit - Discharge Plan Condition: Stable - Follow ups/Referrals Follow ups/Referrals: NFD,None [Primary Care Provider] - 3 days - Instructions
[2017-10-12] MEDS ORDERED: CITROMA ONE (18:24)
[2017-10-12] MEDS ORDERED: CITROMA PO ONE (18:28)
--- NOTE | 2017-10-12 18:55 | RAD ---
AP abdomen Indication: No bowel movement in 5 days Findings: There is moderately increased proximal colonic stool burden. The bowel gas pattern is nonob structed. No gross free air. A few surgical clips overlie the right leigh abdomen. Impression: Suggestion of constipation. No acute process. Reported By:
== END 2017-10-12 18:29 | disposition home or self-care (01) ==
LOC: ER 17:05
DX: K59.01 Slow transit constipation (principal)
CPT/HCPCS: 74018; 99282

== ENCOUNTER 2018-05-02 13:17 | Observation (INO) ==
[2018-05-02] MEDS ORDERED: NS 250 ML IV 250 ML IV ONE (15:05)
[2018-05-02 15:30] LABS: BASOPHILS # (AUTO) 0.1 X10^3/uL (0.0-0.1); BASOPHILS % (AUTO) 1.2 % (0.2-1.0); EOSINOPHILS # (AUTO) 0.1 x10^3/uL (0.0-0.2); EOSINOPHILS % (AUTO) 2.7 % (0.9-2.9); HEMATOCRIT 36.4 % (42.0-54.0); HEMOGLOBIN 12.7 g/dL (13.5-18.0); LYMPHOCYTES # (AUTO) 0.6 X10^3/uL (1.3-2.9); MEAN CORPUSCULAR HEMOGLOBIN 31.9 pg (27.0-34.0); MEAN CORPUSCULAR HGB CONC 34.9 g/dL (33.0-35.0); MEAN CORPUSCULAR VOLUME 91.5 fL (80.0-100.0); MEAN PLATELET VOLUME 8.5 fL (7.4-11.0); MONOCYTES # (AUTO) 0.3 x10^3/uL (0.3-0.8); MONOCYTES % (AUTO) 6.5 % (0.0-13.0); NEUTROPHILS # (AUTO) 3.1 x10^3/uL (2.2-4.8); NEUTROPHILS % (AUTO) 75.6 % (42.0-75.0); PLATELET COUNT 198 X10^3/uL (150.0-450.0); RED BLOOD COUNT 3.98 X10^6/uL (4.7-6.0); WHITE BLOOD COUNT 4.1 X10^3/uL (3.6-10.0)
[2018-05-02 16:09] LABS: ALANINE AMINOTRANSFERASE 39 Units/L (12-78); ALBUMIN 3.9 g/dL (3.4-5.0); ALKALINE PHOSPHATASE 108 Units/L (46-116); ASPARTATE AMINO TRANSFERASE 27 Units/L (15-37); BLOOD UREA NITROGEN 38 mg/dL (7-18); CALCIUM 8.9 mg/dL (8.5-10.1); CARBON DIOXIDE 27.2 mmol/L (21-32); CHLORIDE 98 mmol/L (98-107); CKMB % 3.4 % (<4); COR NA(FOR HYPERGLY) 136 mmol/L (136-145); CREATINE KINASE 171 Units/L (39-308); CREATININE 1.95 mg/dL (0.70-1.30); SODIUM 133 mmol/L (136-145); TOTAL PROTEIN 7.8 g/dL (6.4-8.2); TROPONIN I 0.32 ng/mL (0-1.5); eGFR NON BLACK RACES 37 (>60)
[2018-05-02 16:15] LABS: CREATINE KINASE MB 5.8 ng/mL (0-4.0)
[2018-05-02] MEDS: NS 1000 ML 1,000 ML IV SCH (16:23)
[2018-05-02 16:44] VITALS: BMI 27.1
[2018-05-02] MEDS: HumuLIN R SUBCUT PRN ×2 (17:05→21:03)
[2018-05-02 20:35] LABS: CKMB % 3.3 % (<4); TROPONIN I 0.3 ng/mL (0-1.5)
[2018-05-02] MEDS: SNACK - Diabetic Appropriate PO SCH (21:03)
[2018-05-03] MEDS: ROBITUSSIN DM PO PRN ×2 (00:02→21:34)
[2018-05-03 00:16] LABS: CKMB % 3.3 % (<4); TROPONIN I 0.33 ng/mL (0-1.5)
[2018-05-03] MEDS: NS 1000 ML 1,000 ML IV SCH ×4 (00:33→17:08)
[2018-05-03 05:27] LABS: BASOPHILS % (AUTO) 0.6 % (0.2-1.0); EOSINOPHILS # (AUTO) 0.1 x10^3/uL (0.0-0.2); EOSINOPHILS % (AUTO) 2.4 % (0.9-2.9); HEMATOCRIT 33.7 % (42.0-54.0); HEMOGLOBIN 11.8 g/dL (13.5-18.0); LYMPHOCYTES # (AUTO) 0.7 X10^3/uL (1.3-2.9); LYMPHOCYTES % (AUTO) 16.9 % (21.0-51.0); MEAN CORPUSCULAR HEMOGLOBIN 31.9 pg (27.0-34.0); MEAN CORPUSCULAR HGB CONC 35.2 g/dL (33.0-35.0); MEAN CORPUSCULAR VOLUME 90.7 fL (80.0-100.0); MEAN PLATELET VOLUME 8.8 fL (7.4-11.0); MONOCYTES # (AUTO) 0.4 x10^3/uL (0.3-0.8); MONOCYTES % (AUTO) 9.6 % (0.0-13.0); NEUTROPHILS # (AUTO) 2.8 x10^3/uL (2.2-4.8); NEUTROPHILS % (AUTO) 70.5 % (42.0-75.0); PLATELET COUNT 169 X10^3/uL (150.0-450.0); RED BLOOD COUNT 3.72 X10^6/uL (4.7-6.0)
[2018-05-03] MEDS: HumuLIN R SUBCUT PRN ×4 (05:52→21:34)
[2018-05-03 06:07] LABS: ALBUMIN 3.2 g/dL (3.4-5.0); CALCIUM 7.9 mg/dL (8.5-10.1); CARBON DIOXIDE 25.9 mmol/L (21-32); COR CA(FOR HYPOALB) 8.5 mg/dL (8.5-10.1); CREATININE 1.67 mg/dL (0.70-1.30); TOTAL PROTEIN 6.6 g/dL (6.4-8.2)
--- NOTE | 2018-05-03 19:15 | DR.UPDATE ---
H&P Update History and Physical Update: WAS SEEN IN THE OFFICE TODAY. A H&P WAS COMPLETED PRIOR TO ADMISSION. PATIENT HAS BEEN SEEN AND EXAMINED WITH NO CHANGES NOTED TO H&P. Changes noted: NO Yes with the following:
[2018-05-03] MEDS ORDERED: BENADRYL CAP/TAB 25 MG PO SCH (21:19)
[2018-05-03] MEDS: ZESTRIL TAB 5 MG PO SCH (21:35)
[2018-05-03] MEDS: COREG TAB 25 MG PO SCH (21:36)
[2018-05-03] MEDS: SNACK - Diabetic Appropriate PO SCH (21:37)
[2018-05-03] MEDS ORDERED: MILK OF MAGNESIA PO PRN (23:43)
[2018-05-03] MEDS ORDERED: COLACE CAP 100 MG PO PRN (23:43)
[2018-05-04] MEDS: NS 1000 ML 1,000 ML IV SCH (04:30)
[2018-05-04 05:27] LABS: ALBUMIN 3.3 g/dL (3.4-5.0); CARBON DIOXIDE 24.2 mmol/L (21-32); COR CA(FOR HYPOALB) 8.6 mg/dL (8.5-10.1); CREATININE 1.56 mg/dL (0.70-1.30); EOSINOPHILS # (AUTO) 0.1 x10^3/uL (0.0-0.2); EOSINOPHILS % (AUTO) 2.1 % (0.9-2.9); HEMATOCRIT 34.7 % (42.0-54.0); LYMPHOCYTES # (AUTO) 0.7 X10^3/uL (1.3-2.9); MEAN CORPUSCULAR HEMOGLOBIN 31.4 pg (27.0-34.0); MEAN CORPUSCULAR HGB CONC 34.7 g/dL (33.0-35.0); MEAN CORPUSCULAR VOLUME 90.7 fL (80.0-100.0); MEAN PLATELET VOLUME 8.9 fL (7.4-11.0); MONOCYTES # (AUTO) 0.3 x10^3/uL (0.3-0.8); MONOCYTES % (AUTO) 8.1 % (0.0-13.0); NEUTROPHILS # (AUTO) 2.3 x10^3/uL (2.2-4.8); NEUTROPHILS % (AUTO) 67.8 % (42.0-75.0); PLATELET COUNT 175 X10^3/uL (150.0-450.0); RED BLOOD COUNT 3.82 X10^6/uL (4.7-6.0); RED CELL DISTRIBUTION WIDTH 14.3 % (11.6-16.5); TOTAL PROTEIN 6.7 g/dL (6.4-8.2); WHITE BLOOD COUNT 3.4 X10^3/uL (3.6-10.0)
[2018-05-04] MEDS ORDERED: AMARYL TAB 4 MG PO SCH (07:00)
[2018-05-04] MEDS ORDERED: SYNTHROID 112 mcg TAB PO SCH (07:00)
[2018-05-04] MEDS ORDERED: ASPIRIN 81 MG CHEWTAB PO SCH (09:00)
[2018-05-04] MEDS ORDERED: HYDROCHLOROTHIAZIDE 25 MG TAB PO SCH (09:00)
[2018-05-04] MEDS: COREG TAB 25 MG PO SCH (09:25)
[2018-05-04] MEDS: ZESTRIL TAB 5 MG PO SCH (09:26)
[2018-05-04] MEDS: HumuLIN R SUBCUT PRN (13:23)
[2018-05-04 13:26] VITALS: BP 107/60
== END 2018-05-04 13:30 | disposition home or self-care (01) ==
LOC: MED/SURG
PROVIDERS: ADMIT Internal Medicine; ATTEND Internal Medicine
DX: R53.1 Weakness; R94.31 Abnormal electrocardiogram [ECG] [EKG]; R06.02 Shortness of breath; I25.10 Atherosclerotic heart disease of native coronary artery without angina pectoris; E11.65 Type 2 diabetes mellitus with hyperglycemia; I10 Essential (primary) hypertension; R55 Syncope and collapse; E86.0 Dehydration
CPT/HCPCS: 36415; 70450; 71010; 71045; 80053; 82550; 82553; 84484; 85025; 93005; 93306; 93880; 94760; 96372; 99217; A4216; A4222; G0378; J1815; J7030

== ENCOUNTER 2018-06-13 13:03 | Inpatient (IN) ==
[2018-06-13 13:07] VITALS: BMI 27.3
[2018-06-13 13:27] LABS: ABG BASE EXCESS -0.7 mmol/L (-2.0-2.0); ABG HCO3 23.2 mmol/L (22-26)
[2018-06-13] MEDS ORDERED: ROCEPHIN VIAL 1 GRAM IVP ONE (13:27)
[2018-06-13 13:28] LABS: ABG ALLEN TEST POS
--- NOTE | 2018-06-13 13:29 | DR.AMS ---
HPI Time Seen Time Seen by Provider: 06/13/18 13:24 PCP Primary Care Physician: JUNE POTTER HPI Comment HPI Comment: HERE FROM PCP OFFICE FOR AMS. HIS O2 SAT IS LOW IN ED. HE WAKE UP TO ANSWER QUESTIONS. HE TOOK ROCEPHIN IM 2 DAYS AGO IN PCP OFFICE. HE IS A DIABETIC ON [employer]. NO TRAUMA REPORTED. Complaint Cheif Complaint Doctors Comments: AMS. Chief Complaint:: PT. WAS SEEN AT PCP'S OFFICE TODAY. PT. IS LETHARGIC AND HAD A DECREASED O2 SAT IN OFFICE. PT. WAS SEEN IN PCP OFFICE 2 DAYS PRIOR AND RECEIVED A ROCEPHIN SHOT. Reviewed Nurses Notes Reviewed: Yes Source History Provided: Patient and Family Member Mode of Arrival Mode of Arrival: Wheelchair Timing Onset of Chief Complaint: 06/12/18 Came On: Suddenly Symptoms: Unchanged Duration Duration: Constant Duration: Hours Quality Quality: Decreased Alertness, Change in Behavior and Confusion Severity Severity: Moderate Context Recent: Fever and Cough History Of: CVA, Hypoglycemia and Diabetes Associated Signs and Symptoms Associated Signs and Symptoms: Generalized Weakness, Change in Behavior, Confusion, Decreased LOC and Decreased Oral Intake Other History Other History: HISTORY DIABES PMH PMH Past Medical History: Yes Past Medical History: Anemia, Coronary Artery Disease, CVA, Depression, Diabetes, Dialysis, Dyslipidemia, Migraines, GERD, Hypertension, [place] and Sleep Apnea Past Surgical History: Yes Surgical History: Angioplasty/Stents, CABG/Valve Surgery and Cholecystectomy Family History History of Family Medical Conditions: Yes Family Medical History: Diabetes Mellitus, Cancer, [place], Coronary Artery Disease and Hypertension Social History Does patient currently use any type of tobacco product: No Have you used tobacco products in the last 12 months: No Type of Tobacco Use: None Does any household member use tobacco: No Alcohol Use: None Do you use any recreational Drugs:: No Lives With: Alone Lives Where: Home infectious screening In the last 2 months have you had wt loss of >10#?: NO Have you had fever, night sweats or hemotysis?: No Have you traveled outside the country in the last 6 months?: No Isolation: Standard ROS Review of Systems Constitutional: Fever, Weakness and Fatigue Eyes: negative Eye Pain and Discharge ENTM: Nose Congestion Respiratoy: Productive Cough and Short of Breath Cardiovascular: Edema Gastrointestinal/Abdominal: Nausea and Other (POOR ORAL INTAKE.) Genitourinary: No Symptoms Reported Neurological: Weakness Musculoskeletal: No Symptoms Reported and Muscle Pain; negative Muscle Stiffness and Neck Pain Endocrine: Flushing and Decreased Appetite Psychiatric: No Symptoms Reported All Other Systems: Reviewed and Negative Unable to Obtain Due To: Altered mental status PE Vitals Vital Signs: Temp Pulse Pulse Resp BP BP BP 06/14/18 00:00 100.0 F H 87 18 105/51 06/13/18 21:32 107/59 06/13/18 20:00 97.7 F 80 18 93/55 06/13/18 17:47 80 06/13/18 17:23 101.1 F H 88 22 06/13/18 16:24 101.1 F H 06/13/18 16:05 80 22 108/59 06/13/18 15:44 85 20 103/58 06/13/18 15:15 80 20 93/49 06/13/18 15:00 81 18 93/52 06/13/18 14:30 85 14 111/62 06/13/18 14:00 82 22 115/58 06/13/18 13:45 82 24 116/62 06/13/18 13:30 82 19 109/59 06/13/18 13:12 85 14 116/59 06/13/18 13:03 100 F H 85 20 116/58 05/04/18 12:00 107/60 107/60 05/04/18 00:00 119/63 Pulse Ox 06/14/18 00:00 96 06/13/18 21:32 06/13/18 20:00 96 06/13/18 17:47 93 L 06/13/18 17:23 91 L 06/13/18 16:24 06/13/18 16:05 97 06/13/18 15:44 98 06/13/18 15:15 96 06/13/18 15:00 96 06/13/18 14:30 94 L 06/13/18 14:00 96 06/13/18 13:45 96 06/13/18 13:30 94 L 06/13/18 13:12 88 L 06/13/18 13:03 91 L 05/04/18 12:00 05/04/18 00:00 General Limitations: Altered Mental Status General Appearance: Lethargic and In Distress Head Head Exam: Normal Inspection Head Exam Physical: Other (NONE SEEN) Eyes Eye exam: PERRL and EOMI; negative Scleral Icterus and Conjunctival Injection Pupils: Regular, Round: Bilateral and Reactive: Bilateral ENT ENT Exam: Normal Exam, Normal Oropharynx, Normal External Ear Exam and TM's Normal Bilaterally External Ear Exam: Normal External Inspection TM/Canal Exam: Bilateral: Normal Nose Exam: Normal Nose Exam Mouth Exam: Normal Inspection Throat Exam: Tonsillar Erythema Neck Neck Exam: Trachea Midline; negative Tenderness, Meningismus and Lymphadenopathy Chest Chest Inspection: Symmetric Chest Wall Rise Respiratory Respiratory Exam: Respiratory Distress Respiratory Exam: Bilateral: Wheezing and Bilateral: Rhonchi and Lower: Wheezing and Lower: Rhonchi Cardiovascular Cardiovascular Exam: Regular Rate and Normal Rhythm Abdominal Exam Abdominal Exam: Normal Bowel Sounds and Soft Abdominal Tenderness: Diffuse and Mild Extremities Extremities Exam: Edema Back Back Exam: Normal Inspection Neurological Neurological Exam: Alert Speech: Fluid Speech (SLOW SPEECH) Cranial Nerve Exam: EOM Function (II, III, IV, ): Normal, Gag reflex (XI): Normal and Tongue Deviation: Normal Motor Strength - LUE: 5/5 Motor Strength - RUE: 5/5 Motor Strength - LLE: 5/5 Motor Strength - RLE: 5/5 Skin Skin Exam: Dry MDM Additional Information Obtained Additional Information Obtained From: Family Differential Diagnosis Metabolic: Dehydration, Hypercalcemia, Hypernatremia, Hypoglycemia, Hyponatremia and Hypoxemia Structural: CVA and Mass Lesion Infectious: Sepsis Environmental: Hyperthermia and Hypothermia COURSE Treatment Treatment: SEE ORDERS. PNEUMOMIA AND SEPSIS PATHWAY. GLUCOSE LOW, D50 IV, IMPROVED. Reevaluation 1st: Improved Consultation Consultation Comments: DR. HAN WILL ADMIT PATIENT. Education/Counseling Education/Counseling: Patient and Family Educated On: Diagnosis ROR Labs Reviewed Laboratory Results Reviewed?: Yes Result Diagrams: 06/13/18 13:25 06/13/18 18:17 Laboratory: WBC 5.2 X10^3/uL (3.6-10.0) 06/13/18 13:25 RBC 3.97 X10^6/uL (4.7-6.0) L 06/13/18 13:25 Hgb 12.3 g/dL (13.5-18.0) L 06/13/18 13:25 Hct 35.4 % (42.0-54.0) L 06/13/18 13:25 MCV 89.0 fL (80.0-100.0) 06/13/18 13:25 MCH 31.1 pg (27.0-34.0) 06/13/18 13:25 MCHC 34.9 g/dL (33.0-35.0) 06/13/18 13:25 RDW 14.7 % (11.6-16.5) 06/13/18 13:25 Plt Count 220 X10^3/uL (150.0-450.0) 06/13/18 13:25 MPV 8.2 fL (7.4-11.0) 06/13/18 13:25 Neut % (Auto) 78.2 % (42.0-75.0) H 06/13/18 13:25 Lymph % (Auto) 10.7 % (21.0-51.0) L 06/13/18 13:25 [place] % (Auto) 10.1 % (0.0-13.0) 06/13/18 13:25 Eos % (Auto) 0.4 % (0.9-2.9) L 06/13/18 13:25 Baso % (Auto) 0.6 % (0.2-1.0) 06/13/18 13:25 Neut # (Auto) 4.1 x10^3/uL (2.2-4.8) 06/13/18 13:25 Lymph # (Auto) 0.6 X10^3/uL (1.3-2.9) L 06/13/18 13:25 [place] # (Auto) 0.5 x10^3/uL (0.3-0.8) 06/13/18 13:25 Eos # (Auto) 0.0 x10^3/uL (0.0-0.2) 06/13/18 13:25 Baso # (Auto) 0.0 X10^3/uL (0.0-0.1) 06/13/18 13:25 Absolute Nucleated RBC 0.1 /100WBC 06/13/18 13:25 Sample Site Rrad 06/13/18 13:12 ABG pH 7.430 (7.35-7.45) 06/13/18 13:12 ABG pCO2 35.0 mmHg (35.0-45.0) 06/13/18 13:12 ABG pO2 44.0 mmHg (80.0-100.0) L* 06/13/18 13:12 ABG HCO3 23.2 mmol/L (22-26) 06/13/18 13:12 ABG O2 Saturation 81.0 % (90-100) L* 06/13/18 13:12 ABG Base Excess -0.7 mmol/L (-2.0-2.0) 06/13/18 13:12 Jimmy Test Pos 06/13/18 13:12 A-a Gradient 62.0 mmHg 06/13/18 13:12 FiO2 21.0 06/13/18 13:12 Blood Gas Comments Pt gissell well elj 06/13/18 13:12 Sodium 133 mmol/L (136-145) L 06/13/18 13:25 Corrected Sodium TNP 06/13/18 13:25 Potassium 4.9 mmol/L (3.5-5.1) 06/13/18 13:25 Chloride 98 mmol/L (98-107) 06/13/18 13:25 Carbon Dioxide 22.9 mmol/L (21-32) 06/13/18 13:25 BUN 36 mg/dL (7-18) H 06/13/18 13:25 Creatinine 1.87 mg/dL (0.70-1.30) H 06/13/18 13:25 Est GFR (MDRD) Af Amer 47 (>60) L 06/13/18 13:25 Est GFR (MDRD) Non-Af 38 (>60) L 06/13/18 13:25 Glucose 48 mg/dL (65-99) L* 06/13/18 18:17 POC Glucose (mg/dL) 104 mg/dL (65-99) H 06/14/18 00:56 Lactic Acid 1.1 mmol/L (0.4-2.0) 06/13/18 13:25 Calcium 8.7 mg/dL (8.5-10.1) 06/13/18 13:25 Corrected Calcium TNP 06/13/18 13:25 Total Bilirubin 1.10 mg/dL (0.2-1.0) H 06/13/18 13:25 AST 34 Units/L (15-37) 06/13/18 13:25 ALT 41 Units/L (12-78) 06/13/18 13:25 Alkaline Phosphatase 124 Units/L (46-116) H 06/13/18 13:25 B-Natriuretic Peptide 689 pg/mL (0-79) H* 06/13/18 13:25 Total Protein 7.8 g/dL (6.4-8.2) 06/13/18 13:25 Albumin 3.9 g/dL (3.4-5.0) 06/13/18 13:25 Globulin 3.9 g/dL (2.5-4.5) 06/13/18 13:25 Albumin/Globulin Ratio 1.0 Ratio (1.1-2.1) L 06/13/18 13:25 Specimen Type Clean catch urine 06/13/18 22: Urine Color Yellow (YELLOW) 06/13/18 22: Urine Appearance Clear (CLEAR) 06/13/18 22: Urine pH 5.0 (5.0 - 8.0) 06/13/18 22: Ur Specific [place] 1.025 (1.000-1.030) 06/13/18 22: Urine Protein 2+ (NEGATIVE) 06/13/18 22:29 Urine Glucose (UA) Negative (NEGATIVE) 06/13/18 22: Urine Ketones Negative (NEGATIVE) 06/13/18 22: Urine Occult Blood Negative (NEGATIVE) 06/13/18 22: Urine Nitrite Negative (NEGATIVE) 06/13/18 22: Urine Bilirubin Negative (NEGATIVE) 06/13/18 22: Urine Urobilinogen Normal (NORMAL) 06/13/18 22: Ur Leukocyte Esterase Negative (NEGATIVE) 06/13/18 22: Urine RBC 0-2 /HPF (NONE SEEN) 06/13/18 22:29 Urine WBC None seen /HPF (NONE SEEN) 06/13/18 22:29 Ur Squamous Epith Cells Moderate /HPF (NEGATIVE) 06/13/18 22: Amorphous Sediment 2+ /HPF (NEGATIVE) 06/13/18 22: Urine Bacteria Trace /HPF (NEGATIVE) 06/13/18 22: Hyaline Casts Few /LPF (NEGATIVE) 06/13/18 22:29 Ur Culture Indicated? No/not indicated 06/13/18 22:29 XRAY XRAY Interpreted by: Radiologist XRAY Findings: REPORT NOTED AND DISCUSS WITH PATIENT AND FAMILY EKG Rhythm: NSR ST: Old, Inf and Infarct Diagnosis Discharge Problem: Altered mental status, Bronchitis, Hypoglycemia
[2018-06-13] MEDS ORDERED: ROCEPHIN VIAL 1 GRAM ONE (13:33)
[2018-06-13 13:42] LABS: BASOPHILS % (AUTO) 0.6 % (0.2-1.0); EOSINOPHILS % (AUTO) 0.4 % (0.9-2.9); HEMATOCRIT 35.4 % (42.0-54.0); HEMOGLOBIN 12.3 g/dL (13.5-18.0); LYMPHOCYTES # (AUTO) 0.6 X10^3/uL (1.3-2.9); LYMPHOCYTES % (AUTO) 10.7 % (21.0-51.0); MEAN CORPUSCULAR HEMOGLOBIN 31.1 pg (27.0-34.0); MEAN CORPUSCULAR HGB CONC 34.9 g/dL (33.0-35.0); MEAN PLATELET VOLUME 8.2 fL (7.4-11.0); MONOCYTES # (AUTO) 0.5 x10^3/uL (0.3-0.8); MONOCYTES % (AUTO) 10.1 % (0.0-13.0); NEUTROPHILS # (AUTO) 4.1 x10^3/uL (2.2-4.8); NEUTROPHILS % (AUTO) 78.2 % (42.0-75.0); PLATELET COUNT 220 X10^3/uL (150.0-450.0); RED BLOOD COUNT 3.97 X10^6/uL (4.7-6.0); RED CELL DISTRIBUTION WIDTH 14.7 % (11.6-16.5); WHITE BLOOD COUNT 5.2 X10^3/uL (3.6-10.0)
[2018-06-13] MEDS: NS 1000 ML 1,000 ML IV SCH ×2 (13:43→22:51)
[2018-06-13 13:49] LABS: BLOOD UREA NITROGEN 36 mg/dL (7-18); CALCIUM 8.7 mg/dL (8.5-10.1); CARBON DIOXIDE 22.9 mmol/L (21-32); CHLORIDE 98 mmol/L (98-107); CREATININE 1.87 mg/dL (0.70-1.30); SODIUM 133 mmol/L (136-145); eGFR NON BLACK RACES 38 (>60)
[2018-06-13 13:51] LABS: ALANINE AMINOTRANSFERASE 41 Units/L (12-78); ALBUMIN 3.9 g/dL (3.4-5.0); ALKALINE PHOSPHATASE 124 Units/L (46-116); ASPARTATE AMINO TRANSFERASE 34 Units/L (15-37); TOTAL PROTEIN 7.8 g/dL (6.4-8.2)
[2018-06-13] MEDS ORDERED: D50W ABBOJECT SYR ONE ×2 (13:52→18:17)
[2018-06-13] MEDS ORDERED: D50W ABBOJECT SYR IV ONE ×2 (13:52→18:10)
[2018-06-13 13:55] LABS: LACTIC ACID 1.1 mmol/L (0.4-2.0)
[2018-06-13 14:03] LABS: B-TYPE NATRIURETIC PEPTIDE 689 pg/mL (0-79)
--- NOTE | 2018-06-13 14:03 | RAD ---
HISTORY: Patient is lethargic and had decreased oz 2 sat in PCPs office today Study: AP portable chest Comparison: Portable chest 05/02/2018. Technique: AP portable upright chest Findings: EKG leads overlie the thorax. There are sternotomy wires. The heart is upper limits of normal in size. The airway is normal vascularity is normal. The lungs are clear without infiltrates or effusions. The interstitial and vascular congestion that was present on 05/02/2018 has resolved and there are no signs of CHF at this time. IMPRESSION: 1. Postsurgical chest status post sternotomy and borderline cardiomegaly but no signs of CHF and no acute cardiopulmonary abnormalities on current chest film. Reported By:
[2018-06-13] MEDS ORDERED: ZOFRAN INJ 4 MG VIAL ONE (14:38)
[2018-06-13] MEDS ORDERED: ZOFRAN INJ 4 MG VIAL IVP ONE (14:42)
--- NOTE | 2018-06-13 14:52 | CT ---
HISTORY: AMS, dizziness Study: CT brain without contrast Comparison: 05/03/2018. Technique: Multiple axial images of the brain were obtained from the skull base to the vertex without administration of IV contrast. Coronal and sagittal images are also reviewed. Dose reduction techniques utilized automatic exposure control. Findings: No acute intraparenchymal hemorrhage or mass can be identified. No extra-axial fluid collections are seen. No alteration in the attenuation of the brain parenchyma can be identified to suggest acute or subacute ischemic change. The ventricular system is symmetric and nondilated. There is chronic periventricular white matter disease observed and age-appropriate generalized atrophy. There are small air-fluid levels present within the maxillary sinuses bilaterally. A 2.2 cm mucous retention cyst or polyp is seen in the floor of the left maxillary sinus. There is mucosal thickening involving the ethmoid sinuses bilaterally. There is [id number] bony nasal septal deviation with a right-sided septal spur. IMPRESSION: 1. No acute intracranial process can be identified. 2. Chronic periventricular white matter disease likely on the basis of small vessel ischemic change. 3. Age-appropriate atrophic changes are seen. 4. Bilateral sinusitis with a stable 2.2 cm mucous retention cyst or polyp involving the floor of the left maxillary sinus. Reported By:
[2018-06-13] MEDS ORDERED: TYLENOL 325 MG TAB PO ONE ×2 (16:23→16:24)
[2018-06-13] MEDS ORDERED: PROVENTIL NEB TX 0.083% 2.5MG/ 3ML NEB PRN (16:49)
[2018-06-13] MEDS ORDERED: SALINE 3% 15 ML NEB TX NEB ONE (17:32)
[2018-06-13] MEDS: FORTAZ or TAZICEF VIAL INJ IVP SCH (20:33)
[2018-06-13] MEDS: ROBITUSSIN DM PO SCH ×3 (20:33→21:08)
--- NOTE | 2018-06-13 20:45 | DR.H&P ---
H&P - History & Physical for Day of: H&P Date: 06/13/18 - Chief Complaint Chief Complaint: SOB, COUGH, FEVER, WEAKNESS, DECREASED APPETITE - History of Present Illness History of Present Illness: IS A 68 YEAR OLD PATIENT OF OURS WHO PRESENTED TO THE ER WITH COMPLAINTS OF SHORTNESS OF BREATH, PRODUCTIVE COUGH, FEVER, WEAKNESS, AND DECREASED APPETITE. ON ARRIVAL TO THE ER, HE WAS NOTED WITH OXYGEN SATURATIONS IN THE UPPER 80S ON ROOM AIR. HE WAS NOTED TO BE LETHARGIC. ON ARRIVAL, OTHER VITALS WERE 100.0-85-20-88% RA-116/58. LABS WERE OBTAINED. ABNORMAL LAB VALUES INCLUE THE FOLLOWING: RBC 3.97, HGB 12.3, HCT 35.4, SODIUM 133, BUN 36, CREATININE 1.87, GLUCOSE 50, TOTAL BILI 1.10, ASK PHOS 124, BNP 689. AN ABG WAS OBTAINED AND REVEALED PH 7.430, PC02 35.0, P02 44.0, HC03 23.2, 02 SATURATION 81.0. A CHEST XRAY WAS OBTAINED AND REVEALED: Postsurgical chest status post sternotomy and borderline cardiomegaly but no signs of CHF and no acute cardiopulmonary abnormalities on current chest film. EKG REVEALED: SINUS RHYTHM WITH HR 83. A BRAIN CT WAS OBTAINED AND REVEALED: No acute intracranial process can be identified. Chronic periventricular white matter disease likely on the basis of small vessel ischemic change. Age-appropriate atrophic changes are seen. Bilateral sinusitis with a stable 2.2 cm mucous retention cyst or polyp involving the floor of the left maxillary sinus. BLOOD CULTURES ARE PENDING. HE WAS GIVEN AN AMP OF D50, ROCEPHIN 1GM IV X 1, ZOFRAN 4MG IV X 1, AND TYLENOL 650MG PO X 1 IN THE ER. HE WAS ADMITTED FOR FURTHER EVAULATION AND TREATMENT OF BRONCHOPEUMONIA, AMS, HYPOGLYCEMIA, AND SINUSITIS. HE WAS STARTED ON THE PNEUMONIA PROTOCOL ON LEVAQUIN 750MG IV DAILY, FORTAZ 1GM MIV Q12H, NORMAL SALINE AT 125ML/HR, RESPIRATORY TREATMENTS, AND HOME MEDICATIONS WERE REVIEWED. WE PLAN TO FOLLOW UP WITH AM LABS AND CHEST XRAY AND CONTINUE TO MONITOR. - Past Medical History Past Medical History: MT, Coronary Artery Disease, Hypertension, Dyslipidemia, Diabetes, Dialysis, Depression, Anemia, CVA, GERD, Migraines, Sleep Apnea - Past Surgical History Surgical History: Angioplasty/Stents, CABG/Valve Surgery, Cholecystectomy Additional Surgical History: cataract surgery - Family History Family Medical History: Diabetes Mellitus, Cancer, MT, Coronary Artery Disease, Hypertension - Social History Does patient currently use any type of tobacco product: No Have you used tobacco products in the last 12 months: No Type of Tobacco Use: None Does any household member use tobacco: No Alcohol Use: None Drug Use: None - Medications Home Medications: No Known Drug Allergies [NKDA] Allergy (Verified 06/13/18 13:08) CONTINUE taking the following medications atorvastatin 10 mg PO DAILY 06/13/18 [History] azithromycin 250 mg PO DAILY 06/13/18 [History] furosemide 20 mg PO BID 06/13/18 [History] hydrocodone-chlorpheniramine [Tussionex Pennkinetic ER] 5 ml PO Q12W PRN 06/13/18 [History] - Review of Systems Constitutional: See HPI, Fever, Weakness Eyes: No Symptoms Reported ENT: Nose Congestion Respiratory: See HPI, Cough, Shortness of Breath, Sputum Cardiovascular: No Symptoms Reported Gastrointestinal: Nausea Genitourinary: No Symptoms Reported Musculoskeletal: No Symptoms Reported Skin: No Symptoms Reported Neurological: Weakness, Confusion - Physical Exam Vital Signs: Temperature 101.1 F Pulse Rate [Apical] 80 Pulse Rate 80 Respiratory Rate 22 Blood Pressure [Right Arm] 108/59 Blood Pressure [Left Arm] 107/60 Blood Pressure 116/58 O2 Sat by Pulse Oximetry 93 Oriented: Person Eyes: Normal Ear: Normal Nose: Normal Throat: Normal Respiratory: Diminished Throughout, Wheezes Throughout Cardiovascular: Normal. negative: S3, S4, Murmur : Normal Auscultation: Bowel Sounds: Normal Palpation: Normal Tenderness: Normal Skin: Normal Musculoskeletal: Normal Psychiatric: Normal Mood Description: Calm Affect: Normal Speech Pattern: Inappropriate - Assessment/Plan (1) Bronchopneumonia Status: Acute Plan: FORTAZ IV, LEVAQUIN IV, RESPIRATORY TREATMENTS, SUPPLEMENTAL OXYGEN, CONTINUE TO MONITOR (2) Sinusitis Qualifiers: Sinusitis location: unspecified location Chronicity: acute Recurrence: not specified as recurrent Qualified Code(s): J01.90 - Acute sinusitis, unspecified Status: Acute Plan: IV ANTIBIOTICS, CONTINUE TO MONITOR (3) Altered mental status Qualifiers: Altered mental status type: transient alteration of awareness Qualified Code(s): R40.4 - Transient alteration of awareness Status: Acute (4) Hypoglycemia Status: Acute Plan: MONITOR OTBS, D5NS @125ML/HR, CONTINUE TO MONITOR - Allergies Allergies/Adverse Reactions: Allergies Allergy/AdvReac Type Severity Reaction Status Date / Time No Known Drug Allergies Allergy Verified 06/13/18 13:08 [NKDA]
[2018-06-13] MEDS: SNACK - Diabetic Appropriate PO SCH (20:46)
[2018-06-13] MEDS: LASIX PO SCH (20:46)
[2018-06-13 22:38] LABS: BILIRUBIN,URINE NEGATIVE (NEGATIVE); BLOOD/HEMOGLOBIN,URINE NEGATIVE (NEGATIVE); GLUCOSE, URINE NEGATIVE (NEGATIVE); KETONES,URINE NEGATIVE (NEGATIVE); LEUKOCYTE ESTERASE ,URINE NEGATIVE (NEGATIVE); NITRITES,URINE NEGATIVE (NEGATIVE); PROTEIN,URINE 2+ (NEGATIVE); UROBILINOGEN,URINE NORMAL (NORMAL)
[2018-06-13 22:43] LABS: APPEARANCE,URINE CLEAR (CLEAR); COLOR,URINE YELLOW (YELLOW)
[2018-06-13 22:44] LABS: AMORPHOUS SEDIMENT,UR 2+ /HPF (NEGATIVE); BACTERIA,URINE TRACE /HPF (NEGATIVE); HYALINE CASTS, URINE FEW /LPF (NEGATIVE); RBC,URINE 0-2 /HPF (NONE SEEN); SQUAMOUS EPITHELIAL CELL,UR MODERATE /HPF (NEGATIVE)
[2018-06-13] MEDS: TUSSIONEX PENNKINETIC SUSP PO PRN (22:51)
[2018-06-14] MEDS ORDERED: ZOFRAN INJ 4 MG VIAL ONE (00:47)
[2018-06-14] MEDS: ZOFRAN INJ 4 MG VIAL IVP PRN ×2 (00:52→11:10)
[2018-06-14] MEDS ORDERED: D50W ABBOJECT SYR IV ONE (05:27)
[2018-06-14] MEDS ORDERED: D5 NS 1000 ML 1,000 ML IV ONE (05:28)
[2018-06-14] MEDS ORDERED: D50W ABBOJECT SYR ONE (05:29)
[2018-06-14] MEDS: D5 NS 1000 ML 1,000 ML IV SCH ×4 (05:42→22:16)
[2018-06-14 06:10] LABS: BASOPHILS % (AUTO) 0.5 % (0.2-1.0); EOSINOPHILS % (AUTO) 0.6 % (0.9-2.9); HEMATOCRIT 30.1 % (42.0-54.0); HEMOGLOBIN 10.6 g/dL (13.5-18.0); LYMPHOCYTES # (AUTO) 0.7 X10^3/uL (1.3-2.9); LYMPHOCYTES % (AUTO) 16.7 % (21.0-51.0); MEAN CORPUSCULAR HEMOGLOBIN 31.2 pg (27.0-34.0); MEAN CORPUSCULAR VOLUME 89.1 fL (80.0-100.0); MEAN PLATELET VOLUME 8.4 fL (7.4-11.0); MONOCYTES # (AUTO) 0.6 x10^3/uL (0.3-0.8); MONOCYTES % (AUTO) 13.1 % (0.0-13.0); NEUTROPHILS # (AUTO) 2.9 x10^3/uL (2.2-4.8); NEUTROPHILS % (AUTO) 69.1 % (42.0-75.0); PLATELET COUNT 173 X10^3/uL (150.0-450.0); RED BLOOD COUNT 3.38 X10^6/uL (4.7-6.0); RED CELL DISTRIBUTION WIDTH 14.5 % (11.6-16.5); WHITE BLOOD COUNT 4.2 X10^3/uL (3.6-10.0)
[2018-06-14 06:13] LABS: ALANINE AMINOTRANSFERASE 34 Units/L (12-78); ALBUMIN 3.4 g/dL (3.4-5.0); ALKALINE PHOSPHATASE 99 Units/L (46-116); ASPARTATE AMINO TRANSFERASE 28 Units/L (15-37); BLOOD UREA NITROGEN 43 mg/dL (7-18); CALCIUM 7.8 mg/dL (8.5-10.1); CARBON DIOXIDE 20.3 mmol/L (21-32); CHLORIDE 99 mmol/L (98-107); CREATININE 2.09 mg/dL (0.70-1.30); SODIUM 132 mmol/L (136-145); TOTAL PROTEIN 6.8 g/dL (6.4-8.2); eGFR NON BLACK RACES 34 (>60)
[2018-06-14] MEDS: TUSSIONEX PENNKINETIC SUSP PO PRN (08:18)
[2018-06-14] MEDS: FORTAZ or TAZICEF VIAL INJ IVP SCH ×2 (08:18→20:25)
[2018-06-14] MEDS: ROBITUSSIN DM PO SCH ×4 (08:18→20:26)
[2018-06-14] MEDS: SYNTHROID 112 mcg TAB PO SCH (08:18)
[2018-06-14] MEDS: ASPIRIN 81 MG CHEWTAB PO SCH (08:19)
[2018-06-14] MEDS: ZESTRIL TAB 5 MG PO SCH (08:19)
[2018-06-14] MEDS: LASIX PO SCH ×2 (08:19→20:26)
[2018-06-14] MEDS: LIPITOR TAB 10 MG PO SCH (08:19)
[2018-06-14] MEDS: GENTAMICIN TOPICAL OINT TOP SCH ×2 (10:04→20:26)
[2018-06-14] MEDS: LEVAQUIN PREMIX IV 750 MG 750 MG/150 ML BAG IV SCH (10:04)
[2018-06-14] MEDS: PROVENTIL NEB TX 0.083% 2.5MG/ 3ML NEB PRN (11:22)
[2018-06-14] MEDS ORDERED: PHENERGAN TAB 25 MG PO PRN (12:15)
[2018-06-14] MEDS: LOVENOX INJ 40 MG SYR SC SCH (13:40)
[2018-06-14] MEDS: HumuLIN R SC PRN (17:53)
[2018-06-14] MEDS: SNACK - Diabetic Appropriate PO SCH (20:26)
[2018-06-15] MEDS ORDERED: RESTORIL CAP 15 MG PO PRN (00:11)
[2018-06-15] MEDS ORDERED: RESTORIL CAP 15 MG PO ONE (00:12)
[2018-06-15] MEDS: D5 NS 1000 ML 1,000 ML IV SCH ×5 (00:18→21:10)
[2018-06-15] MEDS: TUSSIONEX PENNKINETIC SUSP PO PRN ×2 (05:57→22:38)
[2018-06-15 06:11] LABS: BASOPHILS % (AUTO) 0.6 % (0.2-1.0); EOSINOPHILS # (AUTO) 0.1 x10^3/uL (0.0-0.2); EOSINOPHILS % (AUTO) 3.2 % (0.9-2.9); HEMATOCRIT 28.8 % (42.0-54.0); LYMPHOCYTES # (AUTO) 0.6 X10^3/uL (1.3-2.9); LYMPHOCYTES % (AUTO) 23.2 % (21.0-51.0); MEAN CORPUSCULAR HEMOGLOBIN 30.9 pg (27.0-34.0); MEAN CORPUSCULAR HGB CONC 34.7 g/dL (33.0-35.0); MEAN PLATELET VOLUME 8.7 fL (7.4-11.0); MONOCYTES # (AUTO) 0.4 x10^3/uL (0.3-0.8); MONOCYTES % (AUTO) 13.8 % (0.0-13.0); NEUTROPHILS # (AUTO) 1.5 x10^3/uL (2.2-4.8); NEUTROPHILS % (AUTO) 59.2 % (42.0-75.0); PLATELET COUNT 141 X10^3/uL (150.0-450.0); RED BLOOD COUNT 3.24 X10^6/uL (4.7-6.0); RED CELL DISTRIBUTION WIDTH 14.8 % (11.6-16.5); WHITE BLOOD COUNT 2.6 X10^3/uL (3.6-10.0)
[2018-06-15 06:25] LABS: ALBUMIN 3.2 g/dL (3.4-5.0); CALCIUM 7.8 mg/dL (8.5-10.1); CARBON DIOXIDE 20.1 mmol/L (21-32); COR CA(FOR HYPOALB) 8.4 mg/dL (8.5-10.1); CREATININE 1.74 mg/dL (0.70-1.30); TOTAL PROTEIN 6.7 g/dL (6.4-8.2)
[2018-06-15] MEDS: FORTAZ or TAZICEF VIAL INJ IVP SCH ×2 (08:12→20:54)
[2018-06-15] MEDS: LIPITOR TAB 10 MG PO SCH (08:12)
[2018-06-15] MEDS: ZESTRIL TAB 5 MG PO SCH (08:12)
[2018-06-15] MEDS: ASPIRIN 81 MG CHEWTAB PO SCH (08:12)
[2018-06-15] MEDS: SYNTHROID 112 mcg TAB PO SCH (08:12)
[2018-06-15] MEDS: ROBITUSSIN DM PO SCH ×4 (08:12→20:54)
[2018-06-15] MEDS: LASIX PO SCH ×2 (08:12→20:54)
[2018-06-15] MEDS: GENTAMICIN TOPICAL OINT TOP SCH ×2 (08:13→20:54)
[2018-06-15] MEDS: LOVENOX INJ 40 MG SYR SC SCH (08:14)
[2018-06-15] MEDS: PROVENTIL NEB TX 0.083% 2.5MG/ 3ML NEB PRN ×3 (09:55→16:04)
[2018-06-15] MEDS: MILK OF MAGNESIA PO SCH ×2 (11:08→20:53)
[2018-06-15] MEDS: SNACK - Diabetic Appropriate PO SCH (20:30)
[2018-06-15] MEDS: PROVENTIL NEB TX 0.083% 2.5MG/ 3ML NEB SCH (20:40)
[2018-06-15] MEDS: HumuLIN R SC PRN (21:30)
[2018-06-16] MEDS ORDERED: NS 1000 ML 1,000 ML ONE (00:12)
[2018-06-16] MEDS: PROVENTIL NEB TX 0.083% 2.5MG/ 3ML NEB SCH ×3 (01:56→08:34)
[2018-06-16] MEDS: NS 1000 ML 1,000 ML IV SCH ×2 (05:35→09:49)
--- NOTE | 2018-06-16 06:04 | RAD ---
Examination: Chest, PA and lateral views History: Cough and fever Comparison 06/13/2018 Findings: Mild cardiomegaly with sternal wires. Pulmonary vascular congestion with diffuse interstitial prominence in the lungs. Small pleural effusions are noted, best visualized on lateral view. No pneumothorax seen. Impression: Stable cardiac prominence with pulmonary vascular congestion and small pleural effusions. The findings are consistent with mild developing CHF. Reported By:
[2018-06-16 06:12] LABS: BASOPHILS % (AUTO) 0.8 % (0.2-1.0); EOSINOPHILS # (AUTO) 0.1 x10^3/uL (0.0-0.2); EOSINOPHILS % (AUTO) 4.5 % (0.9-2.9); HEMATOCRIT 27.5 % (42.0-54.0); HEMOGLOBIN 9.6 g/dL (13.5-18.0); LYMPHOCYTES # (AUTO) 0.5 X10^3/uL (1.3-2.9); LYMPHOCYTES % (AUTO) 22.4 % (21.0-51.0); MEAN CORPUSCULAR HEMOGLOBIN 31.2 pg (27.0-34.0); MEAN CORPUSCULAR HGB CONC 34.9 g/dL (33.0-35.0); MEAN CORPUSCULAR VOLUME 89.4 fL (80.0-100.0); MEAN PLATELET VOLUME 8.9 fL (7.4-11.0); MONOCYTES # (AUTO) 0.3 x10^3/uL (0.3-0.8); MONOCYTES % (AUTO) 12.3 % (0.0-13.0); NEUTROPHILS # (AUTO) 1.3 x10^3/uL (2.2-4.8); PLATELET COUNT 151 X10^3/uL (150.0-450.0); RED BLOOD COUNT 3.08 X10^6/uL (4.7-6.0); RED CELL DISTRIBUTION WIDTH 14.2 % (11.6-16.5); WHITE BLOOD COUNT 2.2 X10^3/uL (3.6-10.0)
[2018-06-16 06:36] LABS: ALBUMIN 3.1 g/dL (3.4-5.0); CARBON DIOXIDE 22.4 mmol/L (21-32); COR CA(FOR HYPOALB) 8.7 mg/dL (8.5-10.1); CREATININE 1.58 mg/dL (0.70-1.30); TOTAL PROTEIN 6.5 g/dL (6.4-8.2)
[2018-06-16 06:37] LABS: BAND NEUTROPHILS % 2 % (0-10)
[2018-06-16 06:38] LABS: PLATELET MORPHOLOGY COMMENT NORMAL (NORMAL)
[2018-06-16] MEDS: LIPITOR TAB 10 MG PO SCH (08:40)
[2018-06-16] MEDS: ROBITUSSIN DM PO SCH (08:40)
[2018-06-16] MEDS: ASPIRIN 81 MG CHEWTAB PO SCH (08:41)
[2018-06-16] MEDS: SYNTHROID 112 mcg TAB PO SCH (08:41)
[2018-06-16] MEDS: LASIX PO SCH (08:41)
[2018-06-16] MEDS: FORTAZ or TAZICEF VIAL INJ IVP SCH (08:41)
[2018-06-16] MEDS: GENTAMICIN TOPICAL OINT TOP SCH (08:41)
[2018-06-16] MEDS: ZESTRIL TAB 5 MG PO SCH (08:42)
[2018-06-16] MEDS: MILK OF MAGNESIA PO SCH (08:42)
[2018-06-16] MEDS: LOVENOX INJ 40 MG SYR SC SCH (08:43)
[2018-06-16] MEDS ORDERED: LASIX IVP ONE (09:28)
[2018-06-16 09:49] VITALS: BP 128/61
[2018-06-16] MEDS: LEVAQUIN PREMIX IV 750 MG 750 MG/150 ML BAG IV SCH (10:07)
--- NOTE | 2018-06-16 17:24 | PCM.PROG ---
Progress Note - Progress Note for Day of Date of Exam: 06/14/18 - Subjective Subjective: WAS ADMITTED FOR BRONCHOPNEUMONIA, SINUSITIS, AMS, AND HYPOGLYCEMIA. TODAY, HE IS ALERT AND ORIENTED, LYING IN BED ON MORNING ROUNDS. HE CONTINUES WITH COMPLAINTS OF COUGH AND SHORTNESS OF BREATH. ON EXAMINATION, HEART IS REGULAR IN RATE AND RHYTHM. BILATERAL LUNGS CONTINUE WITH SCATTERED WHEEZING THROUGHOUT. ABDOMEN IS ROUND, SOFT, AND NON-TENDER WITH NORMAL BOWEL SOUNDS NOTED IN ALL QUADRANTS. SCATTERED SCABBED OVER WOUNDS NOTED TO FACE AND ARMS. HIS VITALS THIS MORNING ARE 99.3-82-20-96%NC-104/52. LABS WERE OBTAINED. ABNORMAL LAB VALUES INCLUDE THE FOLLOWING: RBC 3.38, HGB 10.6, HCT 30.1, SODIUM 132, CARBON DIOXIDE 20.3, BUN 43, CREATININE 2.09, CALCIUM 7.8. HE HAD SEVERAL EPISODES OF NAUSEA THROUGHOUT THE NIGHT WITH A DROP IN BLOOD GLUCOSE THROUGHOUT THE NIGHT. HE IS CURRENTLY RECEIVING IV ANTIBIOITCS, RESPIRATORY TREATMENTS, AND SUPPLEMENTAL OXYGEN. TODAY, WE WILL ADD GENTAMICIN OINTMENT TO WOUNDS. OTHERWISE, WE WILL CONTINUE WITH CURRENT PLAN OF CARE. WE WILL FOLLOW UP WITH AM LABS AND CONTINUE TO MONITOR. - Past Medical Family Social History Past Med/Fam/Surg Hx: No changes since H&P Allergies: Allergies No Known Drug Allergies [NKDA] Allergy (Verified 06/13/18 13:08) - Review of Systems ROS: No change since H&P - Vital Signs and I&O's Vital Signs: Temperature 98.0 F Pulse Rate [Apical] 56 Pulse Rate 91 Respiratory Rate 20 Blood Pressure [Right Arm] 105/57 Blood Pressure [Left Arm] 128/61 Blood Pressure 116/58 O2 Sat by Pulse Oximetry 94 Intake and Output: Intake & Output 06/14/18 06/15/18 06/16/18 06/17/18 11:59 11:59 11:59 11:59 Intake Total 1989 4353 / 4353 3776 / 3776 Balance 1989 4353 / 4353 3776 / 3776 - Physical Exam Oriented: Normal Eyes: Normal Ear: Normal Nose: Normal Throat: Normal Cardiovascular: Normal. negative: S3, S4, Murmur : Normal Auscultation: Bowel Sounds: Normal Palpation: Normal Tenderness: Normal Skin: Normal Musculoskeletal: Normal Psychiatric: Normal Mood Description: Calm Affect: Normal Speech Pattern: Clear - Laboratory and Diagnostics Result Diagrams: 06/16/18 04:14 06/16/18 04:14 Labs: 06/13/18 17:28 Blood Blood Culture - Preliminary 06/13/18 17:24 Blood Blood Culture - Preliminary 06/13/18 13:29 Blood Blood Culture - Preliminary 06/13/18 13:25 Blood Blood Culture - Preliminary Laboratory WBC 2.2 X10^3/uL (3.6-10.0) L 06/16/18 04:14 RBC 3.08 X10^6/uL (4.7-6.0) L 06/16/18 04:14 Hgb 9.6 g/dL (13.5-18.0) L 06/16/18 04:14 Hct 27.5 % (42.0-54.0) L 06/16/18 04:14 MCV 89.4 fL (80.0-100.0) 06/16/18 04:14 MCH 31.2 pg (27.0-34.0) 06/16/18 04:14 MCHC 34.9 g/dL (33.0-35.0) 06/16/18 04:14 RDW 14.2 % (11.6-16.5) 06/16/18 04:14 Plt Count 151 X10^3/uL (150.0-450.0) 06/16/18 04:14 Plt Count Comment Adequate (ADEQUATE) 06/16/18 04:14 MPV 8.9 fL (7.4-11.0) 06/16/18 04:14 Neut % (Auto) 60.0 % (42.0-75.0) 06/16/18 04:14 Lymph % (Auto) 22.4 % (21.0-51.0) 06/16/18 04:14 [place] % (Auto) 12.3 % (0.0-13.0) 06/16/18 04:14 Eos % (Auto) 4.5 % (0.9-2.9) H 06/16/18 04:14 Baso % (Auto) 0.8 % (0.2-1.0) 06/16/18 04:14 Neut # (Auto) 1.3 x10^3/uL (2.2-4.8) L 06/16/18 04:14 Lymph # (Auto) 0.5 X10^3/uL (1.3-2.9) L 06/16/18 04:14 [place] # (Auto) 0.3 x10^3/uL (0.3-0.8) 06/16/18 04:14 Eos # (Auto) 0.1 x10^3/uL (0.0-0.2) 06/16/18 04:14 Baso # (Auto) 0.0 X10^3/uL (0.0-0.1) 06/16/18 04:14 Absolute Nucleated RBC 0.1 /100WBC 06/16/18 04:14 Total Counted 100 06/16/18 04:14 Neutrophils % (Manual) 55 % (39-76) 06/16/18 04:14 Band Neutrophils % 2 % (0-10) 06/16/18 04:14 Lymphocytes % (Manual) 28 % (13-43) 06/16/18 04:14 Monocytes % (Manual) 13 % (4-9) H 06/16/18 04:14 Eosinophils % (Manual) 2 % (0-6) 06/16/18 04:14 Plt Morphology Comment Normal (NORMAL) 06/16/18 04:14 RBC Morphology Normal (NORMAL) 06/16/18 04:14 Sample Site Rrad 06/13/18 13:12 ABG pH 7.430 (7.35-7.45) 06/13/18 13:12 ABG pCO2 35.0 mmHg (35.0-45.0) 06/13/18 13:12 ABG pO2 44.0 mmHg (80.0-100.0) L* 06/13/18 13:12 ABG HCO3 23.2 mmol/L (22-26) 06/13/18 13:12 ABG O2 Saturation 81.0 % (90-100) L* 06/13/18 13:12 ABG Base Excess -0.7 mmol/L (-2.0-2.0) 06/13/18 13:12 Jimmy Test Pos 06/13/18 13:12 A-a Gradient 62.0 mmHg 06/13/18 13:12 FiO2 21.0 06/13/18 13:12 Blood Gas Comments Pt gissell well elj 06/13/18 13:12 Sodium 138 mmol/L (136-145) 06/16/18 04:14 Corrected Sodium 139 mmol/L (136-145) 06/16/18 04:14 Potassium 4.2 mmol/L (3.5-5.1) 06/16/18 04:14 Chloride 104 mmol/L (98-107) 06/16/18 04:14 Carbon Dioxide 22.4 mmol/L (21-32) 06/16/18 04:14 BUN 35 mg/dL (7-18) H 06/16/18 04:14 Creatinine 1.58 mg/dL (0.70-1.30) H 06/16/18 04:14 Est GFR (MDRD) Af Amer 57 (>60) L 06/16/18 04:14 Est GFR (MDRD) Non-Af 47 (>60) L 06/16/18 04:14 Glucose 133 mg/dL (65-99) H 06/16/18 04:14 POC Glucose (mg/dL) 121 mg/dL (65-99) H 06/16/18 05:43 Lactic Acid 1.1 mmol/L (0.4-2.0) 06/13/18 13:25 Calcium 8.0 mg/dL (8.5-10.1) L 06/16/18 04:14 Corrected Calcium 8.7 mg/dL (8.5-10.1) 06/16/18 04:14 Total Bilirubin 0.50 mg/dL (0.2-1.0) 06/16/18 04:14 AST 29 Units/L (15-37) 06/16/18 04:14 ALT 38 Units/L (12-78) 06/16/18 04:14 Alkaline Phosphatase 94 Units/L (46-116) 06/16/18 04:14 B-Natriuretic Peptide 689 pg/mL (0-79) H* 06/13/18 13:25 Total Protein 6.5 g/dL (6.4-8.2) 06/16/18 04:14 Albumin 3.1 g/dL (3.4-5.0) L 06/16/18 04:14 Globulin 3.4 g/dL (2.5-4.5) 06/16/18 04:14 Albumin/Globulin Ratio 0.9 Ratio (1.1-2.1) L 06/16/18 04:14 Specimen Type Clean catch urine 06/13/18 22: Urine Color Yellow (YELLOW) 06/13/18 22: Urine Appearance Clear (CLEAR) 06/13/18 22: Urine pH 5.0 (5.0 - 8.0) 06/13/18 22:29 Ur Specific [place] 1.025 (1.000-1.030) 06/13/18 22: Urine Protein 2+ (NEGATIVE) 06/13/18 22: Urine Glucose (UA) Negative (NEGATIVE) 06/13/18 22: Urine Ketones Negative (NEGATIVE) 06/13/18 22: Urine Occult Blood Negative (NEGATIVE) 06/13/18: Urine Nitrite Negative (NEGATIVE) 06/13/18: Urine Bilirubin Negative (NEGATIVE) 06/13/18 22: Urine Urobilinogen Normal (NORMAL) 06/13/18 22: Ur Leukocyte Esterase Negative (NEGATIVE) 06/13/18 22: Urine RBC 0-2 /HPF (NONE SEEN) 06/13/18 22:29 Urine WBC None seen /HPF (NONE SEEN) 06/13/18 22:29 Ur Squamous Epith Cells Moderate /HPF (NEGATIVE) 06/13/18 22: Amorphous Sediment 2+ /HPF (NEGATIVE) 06/13/18 22: Urine Bacteria Trace /HPF (NEGATIVE) 06/13/18 22: Hyaline Casts Few /LPF (NEGATIVE) 06/13/18 22:29 Ur Culture Indicated? No/not indicated 06/13/18 22:29 - Plan (1) Bronchopneumonia Status: Acute Plan: FORTAZ IV, LEVAQUIN IV, RESPIRATORY TREATMENTS, SUPPLEMENTAL OXYGEN, CONTINUE TO MONITOR (2) Sinusitis Status: Acute Qualifiers: Sinusitis location: unspecified location Chronicity: acute Recurrence: not specified as recurrent Qualified Code(s): J01.90 - Acute sinusitis, unspecified Plan: IV ANTIBIOTICS, CONTINUE TO MONITOR (3) Altered mental status Status: Acute Qualifiers: Altered mental status type: transient alteration of awareness Qualified Code(s): R40.4 - Transient alteration of awareness (4) Hypoglycemia Status: Acute Plan: MONITOR OTBS, D5NS @125ML/HR, CONTINUE TO MONITOR
--- NOTE | 2018-06-28 03:10 | DR.CARTERD ---
- Discharge Summary for: Discharge Summary for Date of:: 06/16/18 - Admission Date Date of Admission: 06/13/18 - Admission Diagnoses Admission Diagnosis: (1) Bronchopneumonia (2) Altered mental status (3) Sinusitis (4) Hypoglycemia - Discharge Date Discharge Date: 06/16/18 - Discharge Diagnoses Discharge Diagnosis: (1) Bronchopneumonia (2) Altered mental status (3) Sinusitis (4) Hypoglycemia - Hospital Course Hospital Course: DAY ONE, IS A 68 YEAR OLD PATIENT OF OURS WHO PRESENTED TO THE ER WITH COMPLAINTS OF SHORTNESS OF BREATH, PRODUCTIVE COUGH, FEVER, WEAKNESS, AND DECREASED APPETITE. ON ARRIVAL TO THE ER, HE WAS NOTED WITH OXYGEN SATURATIONS IN THE UPPER 80S ON ROOM AIR. HE WAS NOTED TO BE LETHARGIC. ON ARRIVAL, OTHER VITALS WERE 100.0-85-20-88% RA-116/58. LABS WERE OBTAINED. ABNORMAL LAB VALUES INCLUDED THE FOLLOWING: RBC 3.97, HGB 12.3, HCT 35.4, SODIUM 133, BUN 36, C REATININE 1.87, GLUCOSE 50, TOTAL BILI 1.10, ASK PHOS 124, BNP 689. AN ABG WAS OBTAINED AND REVEALED PH 7.430, PC02 35.0, P02 44.0, HC03 23.2, 02 SATURATION 81.0. A CHEST XRAY WAS OBTAINED AND REVEALED: Postsurgical chest status post sternotomy and borderline cardiomegaly but no signs of CHF and no acute cardiopulmonary abnormalities on current chest film. EKG REVEALED: SINUS RHYTHM WITH HR 83. A BRAIN CT WAS OBTAINED AND REVEALED: No acute intracranial process can be identified. Chronic periventricular white matter disease likely on the basis of small vessel ischemic change. Age-appropriate atrophic changes are seen. Bilateral sinusitis with a stable 2.2 cm mucous retention cyst or polyp involving the floor of the left maxillary sinus. BLOOD CULTURES ARE PENDING. HE WAS GIVEN AN AMP OF D50, ROCEPHIN 1GM IV X 1, ZOFRAN 4MG IV X 1, AND TYLENOL 650MG PO X 1 IN THE ER. HE WAS ADMITTED FOR FURTHER EVAULATION AND TREATMENT OF BRONCHOPEUMONIA, AMS, HYPOGLYCEMIA, AND SINUSITIS. HE WAS STARTED ON THE PNEUMONIA PROTOCOL ON LEVAQUIN 750MG IV DAILY, FORTAZ 1GM MIV Q12H, NORMAL SALINE AT 125ML/HR, RESPIRATORY TREATMENTS, AND HOME MEDICATIONS WERE REVIEWED. WE FOLLOWED UP WITH AM LABS AND CHEST XRAY AND CONTINUED TO MONITOR. DAY TWO, HE WAS ALERT AND ORIENTED, LYING IN BED ON MORNING ROUNDS. HE CONTINUED WITH COMPLAINTS OF COUGH AND SHORTNESS OF BREATH. ON EXAMINATION, HEART WAS REGULAR IN RATE AND RHYTHM. BILATERAL LUNGS CONTINUED WITH SCATTERED WHEEZING THROUGHOUT. ABDOMEN WAS ROUND, SOFT, AND NON-TENDER WITH NORMAL BOWEL SOUNDS NOTED IN ALL QUADRANTS. SCATTERED SCABBED OVER WOUNDS NOTED TO FACE AND ARMS. HIS VITALS THIS MORNING ARE 99.3-82-20-96%NC-104/52. LABS WERE OBTAINED. ABNORMAL LAB VALUES INCLUDED THE FOLLOWING: RBC 3.38, HGB 10.6, HCT 30.1, SODIUM 132, CARBON DIOXIDE 20.3, BUN 43, CREATININE 2.09, CALCIUM 7.8. HE HAD SEVERAL EPISODES OF NAUSEA THROUGHOUT THE NIGHT WITH A DROP IN BLOOD GLUCOSE THROUGHOUT THE NIGHT. HE WAS RECEIVING IV ANTIBIOITCS, RESPIRATORY TREATMENTS, AND SUPPLEMENTAL OXYGEN. WE ADDED GENTAMICIN OINTMENT TO WOUNDS. WE CONTINUE WITH CURRENT PLAN OF CARE. WE FOLLOWED UP WITH AM LABS AND CONTINUED TO MONITOR. DAY FOUR, PATIENT LYING IN BED ON MORNING ROUNDS ALERT AND ORIENTED. HE VOICED NO COMPLAINTS THIS AM. LUNGS SOUNDS NOTED TO BE CLEAR AND DIMINISHED. VITALS WERE STABLE. LABS WERE IN NORMAL RANGE FOR PATIENT. BLOOD GLUCOSE LEVELS HAVE REMAI NARENDRA ELEVATED THROUGHOUT THE NIGHT WIT NO REPORTS OF HYPOGLYCEMIA. WE PLANNED TO DISCHARGE HOME. INSTRUCTIONS FOR MEDICATIONS AND FOLLOW UP WERE DISCUSSED WITH PATIENT AND FAMILY, BOTH VOICED UNDERSTANDING. PATIENT DISCHARGED HOME IN STABLE CONDITION WITH FAMILY. - Discharge Medications Discharge Medications: Home Medication List atorvastatin 10 mg PO DAILY 06/13/18 [History] azithromycin 250 mg PO DAILY 06/13/18 [History] furosemide 20 mg PO BID 06/13/18 [History] hydrocodone-chlorpheniramine [Tussionex Pennkinetic ER] 5 ml PO Q12W PRN 06/13/18 [History] albuterol sulfate 1 ea NEB TID #50 units 06/16/18 [Rx] furosemide [Lasix] 40 mg PO BID #60 tab 06/16/18 [Rx] gentamicin 1 applic TOP BID #1 g 06/16/18 [Rx] levofloxacin [Levaquin] 500 mg PO QDAY #10 tab 06/16/18 [Rx] Prescriptions: albuterol sulfate Martín Wagner furosemide [Lasix] Martín Wagner gentamicin Martín Wagner levofloxacin [Levaquin] Martín Wagner Ambulatory Orders aspirin 81 mg PO DAILY 06/19/17 carvedilol 25 mg PO BID 06/19/17 levothyroxine 112 mcg PO DAILY 06/19/17 lisinopril 5 mg PO DAILY 06/19/17 glimepiride 4 mg PO BID 10/02/17 - Discharge Disposition Discharge Disposition: PATIENT IS TO FOLLOW UP IN OUR OFFICE IN ONE WEEK.
== END 2018-06-16 11:00 | disposition home or self-care (01) | DRG 195 ==
LOC: ER 13:03 → MED/SURG 15:53
PROVIDERS: ADMIT Internal Medicine; ATTEND Internal Medicine
DX: I25.10 Atherosclerotic heart disease of native coronary artery without angina pectoris; J20.8 Acute bronchitis due to other specified organisms; R94.31 Abnormal electrocardiogram [ECG] [EKG]; R06.02 Shortness of breath; J18.0 Bronchopneumonia, unspecified organism; I10 Essential (primary) hypertension; R42 Dizziness and giddiness; E78.2 Mixed hyperlipidemia; E11.649 Type 2 diabetes mellitus with hypoglycemia without coma; R41.82 Altered mental status, unspecified; K21.9 Gastro-esophageal reflux disease without esophagitis; J01.80 Other acute sinusitis
CPT/HCPCS: 36415; 36600; 70450; 71010; 71020; 71045; 71046; 80053; 81001; 82803; 82947; 83605; 83880; 85025; 87040; 93005; 94640; 94760; 96365; 96367; 96374; 96375; 99284; A4222; Q0169; J0696; J0713; J1650; J1815; J1940; J1956; J2405; J3490; J7030; J7042; J7613

== ENCOUNTER 2019-05-05 11:13 | Observation (INO) ==
[2019-05-05] MEDS ORDERED: HumuLIN R SUBCUT PRN (13:26)
[2019-05-05 13:58] LABS: BASOPHILS % (AUTO) 0.7 % (0.2-1.0); EOSINOPHILS # (AUTO) 0.1 x10^3/uL (0.0-0.2); EOSINOPHILS % (AUTO) 2.9 % (0.9-2.9); HEMATOCRIT 34.5 % (42.0-54.0); HEMOGLOBIN 11.8 g/dL (13.5-18.0); LYMPHOCYTES # (AUTO) 0.5 X10^3/uL (1.3-2.9); LYMPHOCYTES % (AUTO) 11.5 % (21.0-51.0); MEAN CORPUSCULAR HEMOGLOBIN 29.7 pg (27.0-34.0); MEAN CORPUSCULAR HGB CONC 34.3 g/dL (33.0-35.0); MEAN CORPUSCULAR VOLUME 86.6 fL (80.0-100.0); MEAN PLATELET VOLUME 8.4 fL (7.4-11.0); MONOCYTES # (AUTO) 0.4 x10^3/uL (0.3-0.8); MONOCYTES % (AUTO) 10.2 % (0.0-13.0); NEUTROPHILS # (AUTO) 3.1 x10^3/uL (2.2-4.8); NEUTROPHILS % (AUTO) 74.7 % (42.0-75.0); PLATELET COUNT 194 X10^3/uL (150.0-450.0); RED BLOOD COUNT 3.98 X10^6/uL (4.7-6.0); RED CELL DISTRIBUTION WIDTH 14.6 % (11.6-16.5); WHITE BLOOD COUNT 4.2 X10^3/uL (3.6-10.0)
[2019-05-05 14:17] LABS: ALANINE AMINOTRANSFERASE 22 Units/L (12-78); ALBUMIN 3.5 g/dL (3.4-5.0); ALKALINE PHOSPHATASE 153 Units/L (46-116); ASPARTATE AMINO TRANSFERASE 20 Units/L (15-37); BLOOD UREA NITROGEN 36 mg/dL (7-18); CALCIUM 8.9 mg/dL (8.5-10.1); CARBON DIOXIDE 29.9 mmol/L (21-32); CHLORIDE 98 mmol/L (98-107); COR NA(FOR HYPERGLY) 137 mmol/L (136-145); CREATINE KINASE 122 Units/L (39-308); CREATININE 1.87 mg/dL (0.70-1.30); SODIUM 136 mmol/L (136-145); TOTAL PROTEIN 7.3 g/dL (6.4-8.2); TROPONIN I < 0.02 ng/mL (0-1.5); eGFR NON BLACK RACES 38 (>60)
[2019-05-05] MEDS: NS 1000 ML 1,000 ML IV SCH (14:43)
[2019-05-05 15:05] LABS: CKMB % 3.5 % (<4)
[2019-05-05 15:10] LABS: CREATINE KINASE MB 4.3 ng/mL (0-4.0)
[2019-05-05 15:14] VITALS: BMI 25.9
--- NOTE | 2019-05-05 17:06 | RAD ---
Chest AP portable Indication: Syncope and dyspnea Comparison: 06/16/2018 Findings: There is no pneumothorax or effusion. There is cardiomegaly with sternotomy change. Mild increased interstitial markings/peribronchial thickening noted. This is probably chronic, essentially unchanged from the prior. However, developing CHF or bronchitis cannot be excluded. Impression: Cardiomegaly and chronic lung changes, similar to the prior. Chronic interstitial lung changes are favored, although developing CHF or bronchitis cannot be excluded. Reported By:
[2019-05-05 17:58] LABS: CKMB % 3.3 % (<4); CREATINE KINASE 129 Units/L (39-308); TROPONIN I < 0.02 ng/mL (0-1.5)
[2019-05-05 18:16] LABS: CREATINE KINASE MB 4.3 ng/mL (0-4.0)
[2019-05-05] MEDS: COREG TAB 3.125 MG PO SCH (20:47)
[2019-05-05] MEDS: LASIX IVP SCH (20:48)
[2019-05-05] MEDS ORDERED: ZOCOR TAB 20 MG PO SCH (21:00)
[2019-05-05] MEDS: SNACK - Diabetic Appropriate PO SCH (21:32)
[2019-05-05 21:48] LABS: CKMB % 3.1 % (<4); CREATINE KINASE 123 Units/L (39-308); CREATINE KINASE MB 3.8 ng/mL (0-4.0); TROPONIN I < 0.02 ng/mL (0-1.5)
[2019-05-06] MEDS: NS 1000 ML 1,000 ML IV SCH ×3 (04:39→16:23)
[2019-05-06 05:01] LABS: BASOPHILS % (AUTO) 0.6 % (0.2-1.0); EOSINOPHILS # (AUTO) 0.1 x10^3/uL (0.0-0.2); HEMATOCRIT 33.1 % (42.0-54.0); HEMOGLOBIN 11.4 g/dL (13.5-18.0); LYMPHOCYTES # (AUTO) 0.4 X10^3/uL (1.3-2.9); LYMPHOCYTES % (AUTO) 10.9 % (21.0-51.0); MEAN CORPUSCULAR HEMOGLOBIN 29.7 pg (27.0-34.0); MEAN CORPUSCULAR HGB CONC 34.3 g/dL (33.0-35.0); MEAN CORPUSCULAR VOLUME 86.5 fL (80.0-100.0); MEAN PLATELET VOLUME 8.4 fL (7.4-11.0); MONOCYTES # (AUTO) 0.4 x10^3/uL (0.3-0.8); MONOCYTES % (AUTO) 10.4 % (0.0-13.0); NEUTROPHILS # (AUTO) 3.1 x10^3/uL (2.2-4.8); NEUTROPHILS % (AUTO) 75.1 % (42.0-75.0); PLATELET COUNT 187 X10^3/uL (150.0-450.0); RED BLOOD COUNT 3.83 X10^6/uL (4.7-6.0); RED CELL DISTRIBUTION WIDTH 14.1 % (11.6-16.5); WHITE BLOOD COUNT 4.1 X10^3/uL (3.6-10.0)
[2019-05-06 05:07] LABS: ALANINE AMINOTRANSFERASE 24 Units/L (12-78); ALBUMIN 3.1 g/dL (3.4-5.0); ALKALINE PHOSPHATASE 157 Units/L (46-116); ASPARTATE AMINO TRANSFERASE 23 Units/L (15-37); BLOOD UREA NITROGEN 34 mg/dL (7-18); CALCIUM 8.3 mg/dL (8.5-10.1); CARBON DIOXIDE 26.7 mmol/L (21-32); CHLORIDE 102 mmol/L (98-107); SODIUM 138 mmol/L (136-145); TOTAL PROTEIN 6.6 g/dL (6.4-8.2); eGFR NON BLACK RACES 43 (>60)
[2019-05-06] MEDS ORDERED: D50W ABBOJECT SYR IV ONE (06:03)
[2019-05-06] MEDS ORDERED: D50W ABBOJECT SYR ONE (06:10)
[2019-05-06] MEDS: LASIX IVP SCH ×2 (08:08→20:21)
[2019-05-06] MEDS: COREG TAB 3.125 MG PO SCH ×2 (08:08→20:21)
--- NOTE | 2019-05-06 08:41 | VAS ---
History: Syncope Study: Carotid duplex ultrasound Comparison: May 03, 2018 Findings: Images show calcified plaque in the right carotid bulb and a focal calcified plaque in the distal left common carotid artery and also in the left carotid bulb. There is antegrade flow in the vertebral arteries. Peak systolic velocity in the right internal carotid artery is 77.2 centimeters/second and in the distal right common carotid artery is 60.6 for a ratio of 1.27 Peak systolic flow in the left internal carotid artery is 99.2 versus 72.8 in the distal left common carotid artery for a ratio of 1.4. Impression: No significant change calcified plaques in both carotid bulbs but without significant stenosis. Reported By:
--- NOTE | 2019-05-06 08:45 | US ---
HISTORY: Syncope Study: Abdominal aortic ultrasound Comparison: None Technique: Multiple grayscale sonographic images were obtained. Findings: The examination is limited by the large amount of overlying bowel gas. There is some atherosclerotic plaque present in the aorta. The proximal abdominal aorta measured 1.7 x 1.8 cm. The mid abdominal aorta measured 1.8 x 1.8 cm. The distal abdominal aorta measured 1.7 x 1.9 cm. The common iliac arteries were obscured by overlying bowel gas. IMPRESSION: Mild calcific atherosclerotic change No evidence for abdominal aortic aneurysm Reported By:
[2019-05-06] MEDS ORDERED: LANTUS SC SCH (09:00)
--- NOTE | 2019-05-06 12:18 | DR.UPDATE ---
H&P Update History and Physical Update: PRESENTED TO THE OFFICE WITH COMPLAINTS OF DIZZINESS, UNSTEADY GAIT, AND NEAR SYNCOPE. HE ALSO REPORTS VISION CHANGES. HE WAS ADMITTED FOR FURTHER EVALUATION AND TREATMENT. ON ADMISSION, WE PLAN TO OBTAIN LABS, CHEST XRAY, SERIAL CARDIAC ENZYMES AND EKGS, AN ECHO, CAROTID DOPPLER, AND AORTA US. WE WILL START NORMAL SALINE AT 50ML/HR AND RESUME HOME MEDICATIONS. OTHERWISE, WE WILL FOLLOW UP WITH AM LABS AND CONTINUE TO MONITOR. History and Physical reviewed and patient examined. Changes noted: NO Yes with the following: Prescription drug monitoring program results: PDMP was not reviewed
--- NOTE | 2019-05-06 16:27 | MRI ---
MRI BRAIN WITHOUT CONTRAST CLINICAL HISTORY: 69-year-old male with syncopal episode and dizziness. COMPARISON: CT head 06/13/2018. TECHNIQUE: Multiplanar, multisequence MR images of the brain were obtained without contrast. FINDINGS: There is no evidence of diffusion restriction. The craniocervical junction is normal. Pituitary and optic nerve complex are normal. Multifocal punctate T2 FLAIR signal hyperintensities are present within the subcortical, juxtacortical, periventricular and supraventricular white matter and bilateral cerebellar hemispheres that are nonspecific in appearance but most likely to represent microvascular white matter ischemic changes. Normal signal characteristics and morphology are demonstrated within the cerebral cortex, subcortical white matter, corpus callosum, deep mercado nuclei, brainstem and cerebellum. The major vascular flow voids, to include the dural venous sinuses, are intact. No abnormal susceptibility on gradient imaging. Age advanced cortical volume loss is present, with commensurate sulcal and ventricular prominence. The basilar cisterns are normal. Bilateral aphakia. The orbits and globes are otherwise within normal limits. Mild chronic pansinusitis with mastoid air cells and tympanic cavities clear. IMPRESSION: 1. No acute ischemic or hemorrhagic insult. 2. Mild, chronic microvascular white matter ischemic disease with associated volume loss. 3. Mild, chronic pansinusitis as above, correlate clinically. Reported By:
[2019-05-06] MEDS ORDERED: CRESTOR TAB 10 MG PO SCH (21:00)
[2019-05-06] MEDS: SNACK - Diabetic Appropriate PO SCH (21:21)
--- NOTE | 2019-05-06 22:39 | PCM.PROG ---
Progress Note - Progress Note for Day of Date of Exam: 05/06/19 - Subjective Subjective: WAS ADMITTED YESTERDAY FOR SYNCOPE, DIZZINESS, AND VISION CHANGES. TODAY, HE IS ALERT AND ORIENTED, LYING IN BED ON MORNING ROUNDS. HE CONTINUES WITH DIZZINESS AND BLURRED VISION. ON EXAMINATION, HEART IS REGULAR IN RATE AND RHYTHM. BILATERAL LUNGS ARE NOTED WITH DIMINISHED LUNG SOUNDS THROUGHOUT. ABDOMEN IS ROUND, SOFT, AND NON-TENDER WITH NORMAL BOWEL SOUNDS NOTED IN ALL QUADRANTS. HIS VITALS THIS MORNING ARE: 98.3-83-20-96%-121/69. LABS WERE OBTAINED. ABNORMAL LAB VALUES INCLUDE THE FOLLOWING: RBC 3.83, HGB 11.4, HCT 33.1, BUN 34, CREATININE 1.70, CALCIUM 8.3, ALK PHOS 157, BNP 579, ALBUMIN 3.1. CARDIAC ENZYMES WITHIN NORMAL LIMITS. A CHEST XRAY WAS OBTAINED ON ADMISSION AND REVEALED: Cardiomegaly and chronic lung changes, similar to the prior. Chronic interstitial lung changes are favored, although developing CHF or bronchitis cannot be excluded. EKG REVEALED SINUS RHYTHM WITH HR 86. AN ECHO WAS OBTAINED AND REVEALED AN EJECTION FRACTION OF 54%. MODERATE HYPERTROPYHY OF THE LEFT VENTRICLE. AN ABDOMINAL ULTRASOUND WAS OBTAINED AND REVEALED: Mild calcific atherosclerotic change. No evidence for abdominal aortic aneurysm. A CAROTID DOPPLER WAS OBTAINED AND REVEALED: No significant change calcified plaques in both carotid bulbs but without significant stenosis. TODAY, WE WILL OBTAIN A BRAIN MRI WITHOUT CONTRAST. WE WILL DISCONTINUE HIS ZOCOR AND START CRESTOR 10MG PO HS. WE WILL HOLD HIS LANTUS DUE TO HIS BLOOD GLUCOSE LEVELS DROPPING. OTHERWISE, WE PLAN TO FOLLOW UP WITH AM LABS AND CONTINUE TO MONITOR. - Past Medical Family Social History Past Med/Fam/Surg Hx: No changes since H&P Allergies: Allergies No Known Drug Allergies [NKDA] Allergy (Verified 05/05/19 13:52) - Review of Systems ROS: No change since H&P - Vital Signs and I&O's Vital Signs: Temperature 99.7 F Pulse Rate [Left Brachial] 95 Respiratory Rate 20 Blood Pressure [Right Arm] 122/68 Blood Pressure [Left Arm] 129/72 O2 Sat by Pulse Oximetry 94 Intake and Output: Intake & Output 05/04/19 05/05/19 05/06/19 05/07/19 11:59 11:59 11:59 11:59 Intake Total 890 / 890 1260 / 1260 Balance 890 / 890 1260 / 1260 - Physical Exam Oriented: Normal Eyes: Blurred Vision Ear: Normal Nose: Normal Throat: Normal Respiratory: Generalized, Diminished Cardiovascular: Normal : Normal Auscultation: Bowel Sounds: Normal Palpation: Normal Tenderness: Normal Skin: Normal Musculoskeletal: Normal Psychiatric: Normal Mood Description: Calm Affect: Normal Speech Pattern: Clear, Appropriate - Laboratory and Diagnostics Result Diagrams: 05/06/19 04:16 05/06/19 04:16 Labs: Laboratory WBC 4.1 X10^3/uL (3.6-10.0) 05/06/19 04:16 RBC 3.83 X10^6/uL (4.7-6.0) L 05/06/19 04:16 Hgb 11.4 g/dL (13.5-18.0) L 05/06/19 04:16 Hct 33.1 % (42.0-54.0) L 05/06/19 04:16 MCV 86.5 fL (80.0-100.0) 05/06/19 04:16 MCH 29.7 pg (27.0-34.0) 05/06/19 04:16 MCHC 34.3 g/dL (33.0-35.0) 05/06/19 04:16 RDW 14.1 % (11.6-16.5) 05/06/19 04:16 Plt Count 187 X10^3/uL (150.0-450.0) 05/06/19 04:16 MPV 8.4 fL (7.4-11.0) 05/06/19 04:16 Neut % (Auto) 75.1 % (42.0-75.0) H 05/06/19 04:16 Lymph % (Auto) 10.9 % (21.0-51.0) L 05/06/19 04:16 [place] % (Auto) 10.4 % (0.0-13.0) 05/06/19 04:16 Eos % (Auto) 3.0 % (0.9-2.9) H 05/06/19 04:16 Baso % (Auto) 0.6 % (0.2-1.0) 05/06/19 04:16 Neut # (Auto) 3.1 x10^3/uL (2.2-4.8) 05/06/19 04:16 Lymph # (Auto) 0.4 X10^3/uL (1.3-2.9) L 05/06/19 04:16 [place] # (Auto) 0.4 x10^3/uL (0.3-0.8) 05/06/19 04:16 Eos # (Auto) 0.1 x10^3/uL (0.0-0.2) 05/06/19 04:16 Baso # (Auto) 0.0 X10^3/uL (0.0-0.1) 05/06/19 04:16 Absolute Nucleated RBC 0.0 /100WBC 05/06/19 04:16 Sodium 138 mmol/L (136-145) 05/06/19 04:16 Corrected Sodium TNP 05/06/19 04:16 Potassium 3.7 mmol/L (3.5-5.1) 05/06/19 04:16 Chloride 102 mmol/L (98-107) 05/06/19 04:16 Carbon Dioxide 26.7 mmol/L (21-32) 05/06/19 04:16 BUN 34 mg/dL (7-18) H 05/06/19 04:16 Creatinine 1.70 mg/dL (0.70-1.30) H 05/06/19 04:16 Est GFR (MDRD) Af Amer 52 (>60) L 05/06/19 04:16 Est GFR (MDRD) Non-Af 43 (>60) L 05/06/19 04:16 Glucose 80 mg/dL (65-99) 05/06/19 04:16 POC Glucose (mg/dL) 191 mg/dL (65-99) H 05/06/19 20:03 Calcium 8.3 mg/dL (8.5-10.1) L 05/06/19 04:16 Corrected Calcium 9.0 mg/dL (8.5-10.1) 05/06/19 04:16 Magnesium 2.0 mg/dL (1.7-2.9) 05/06/19 04:16 Total Bilirubin 0.70 mg/dL (0.2-1.0) 05/06/19 04:16 AST 23 Units/L (15-37) 05/06/19 04:16 ALT 24 Units/L (12-78) 05/06/19 04:16 Alkaline Phosphatase 157 Units/L (46-116) H 05/06/19 04:16 Creatine Kinase 123 Units/L (39-308) 05/05/19 21:10 CK-MB (CK-2) 3.8 ng/mL (0-4.0) 05/05/19 21:10 CK/CKMB % Calc 3.1 % (<4) 05/05/19 21:10 Troponin I < 0.02 ng/mL (0-1.5) 05/05/19 21:10 B-Natriuretic Peptide 579 pg/mL (0-79) H* 05/06/19 04:16 Total Protein 6.6 g/dL (6.4-8.2) 05/06/19 04:16 Albumin 3.1 g/dL (3.4-5.0) L 05/06/19 04:16 Globulin 3.5 g/dL (2.5-4.5) 05/06/19 04:16 Albumin/Globulin Ratio 0.9 Ratio (1.1-2.1) L 05/06/19 04:16 - Plan (1) Syncope Status: Acute Qualifiers: Syncope type: unspecified Qualified Code(s): R55 - Syncope and collapse (2) Acute renal failure Status: Acute Qualifiers: Acute renal failure type: unspecified Qualified Code(s): N17.9 - Acute kidney failure, unspecified
[2019-05-07] MEDS ORDERED: RESTORIL CAP 15 MG PO PRN (02:41)
[2019-05-07] MEDS ORDERED: VISTARIL PO PRN (02:47)
[2019-05-07] MEDS ORDERED: VISTARIL PO ONE (02:49)
[2019-05-07 05:32] LABS: BASOPHILS % (AUTO) 0.4 % (0.2-1.0); EOSINOPHILS # (AUTO) 0.1 x10^3/uL (0.0-0.2); EOSINOPHILS % (AUTO) 1.7 % (0.9-2.9); HEMATOCRIT 32.6 % (42.0-54.0); HEMOGLOBIN 11.2 g/dL (13.5-18.0); LYMPHOCYTES # (AUTO) 0.6 X10^3/uL (1.3-2.9); LYMPHOCYTES % (AUTO) 10.4 % (21.0-51.0); MEAN CORPUSCULAR HEMOGLOBIN 29.7 pg (27.0-34.0); MEAN CORPUSCULAR HGB CONC 34.3 g/dL (33.0-35.0); MEAN CORPUSCULAR VOLUME 86.8 fL (80.0-100.0); MONOCYTES # (AUTO) 0.6 x10^3/uL (0.3-0.8); MONOCYTES % (AUTO) 11.4 % (0.0-13.0); NEUTROPHILS # (AUTO) 4.1 x10^3/uL (2.2-4.8); NEUTROPHILS % (AUTO) 76.1 % (42.0-75.0); PLATELET COUNT 203 X10^3/uL (150.0-450.0); RED BLOOD COUNT 3.75 X10^6/uL (4.7-6.0); RED CELL DISTRIBUTION WIDTH 14.4 % (11.6-16.5); WHITE BLOOD COUNT 5.4 X10^3/uL (3.6-10.0)
[2019-05-07 05:56] LABS: CALCIUM 8.3 mg/dL (8.5-10.1); CARBON DIOXIDE 24.5 mmol/L (21-32); COR CA(FOR HYPOALB) 9.1 mg/dL (8.5-10.1); CREATININE 1.67 mg/dL (0.70-1.30); TOTAL PROTEIN 6.6 g/dL (6.4-8.2)
--- NOTE | 2019-05-07 06:10 | RAD ---
HISTORY: Syncope Study: Chest AP portable Comparison: 05/05/2018 Findings: Patient is status post median sternotomy and CABG. The heart is enlarged. No definite congestive heart failure is noted. Mild interstitial lung changes are present and stable. No acute alveolar infiltrates or pleural effusions are identified. The bony thorax is unremarkable. IMPRESSION: Continued cardiomegaly without congestive heart failure Stable interstitial lung changes Reported By:
[2019-05-07 08:23] VITALS: BP 119/69
[2019-05-07] MEDS: COREG TAB 3.125 MG PO SCH (08:31)
[2019-05-07] MEDS: LASIX IVP SCH (08:31)
== END 2019-05-07 11:35 | disposition home or self-care (01) ==
LOC: MED/SURG
PROVIDERS: ADMIT Internal Medicine; ATTEND Internal Medicine
DX: R26.89 Other abnormalities of gait and mobility; I25.10 Atherosclerotic heart disease of native coronary artery without angina pectoris; H53.8 Other visual disturbances; R55 Syncope and collapse; R42 Dizziness and giddiness; N17.9 Acute kidney failure, unspecified; R94.31 Abnormal electrocardiogram [ECG] [EKG]; I10 Essential (primary) hypertension
CPT/HCPCS: 36415; 70551; 71010; 71045; 76770; 80053; 82550; 82553; 83735; 83880; 84484; 85025; 93005; 93306; 93880; 94760; 96360; 96361; 96372; 96374; A4216; A4222; Q0177; G0378; J1815; J1940; J3490; J7030